=== PATIENT | female | born 1955 | race Caucasian/White ===

== ENCOUNTER 2020-01-30 19:55 | Emergency (ER) | payer MEDICARE, SELFPAY ==
--- NOTE | ~2020-01-30 | XR_ITS ---
EXAMINATION: XR chest 1V portable EXAM DATE: 01/30/2020 21:18 INDICATION: Left-sided chest pain. TECHNIQUE: Portable AP frontal chest x-ray was obtained. Comparison is made to prior examination from 09/19/2019. FINDINGS: Chondral cartilage calcification unchanged. The lungs are clear. There are no pleural effu sions. The cardiomediastinal silhouette is within normal limits. There is no pneumothorax suspected . The bones and soft tissues are unremarkable. IMPRESSION: No acute cardiopulmonary findings. Reviewed, dictated and finalized at location A.
--- NOTE | ~2020-01-30 | CT_ITS ---
EXAMINATION: CT abdomen pelvis w con EXAM DATE: 01/30/2020 21:52 INDICATION: Left-sided abdominal pain. TECHNIQUE: Spiral CT of the abdomen and pelvis was performed following intravenous injection of 100 m L Omnipaque 350. Axial, coronal and sagittal images were reviewed. The dose-length product (DLP) fo r this examination was 1695.21 mGy-cm. The exposure was tailored according to patient size (auto mA exposure control), and iterative reconstruction (ASIR) was used as additional dose reduction techniqu e. There is no prior study for comparison. FINDINGS: There is a right lower quadrant spigelian hernia with the terminal ileum extending inside. Hernia measures about 8 x 10 cm and is likely causing partial small bowel obstruction given the moder ately distended small bowel proximal to this up to about 3 cm, with air-fluid levels. Mild edema with in the hernia and small amount of free pelvic fluid. Uncertain whether or not this is incarcerated. A lso small umbilical and supraumbilical fat-containing hernias. The liver, spleen, adrenal glands and pancreas are unremarkable. There are gallstones within an othe rwise unremarkable gallbladder. No evidence of obstructive biliary disease. Portal and splenic vein s are patent. Kidneys enhance symmetrically. There is no hydronephrosis. The uterus is unremarkab le. The bladder is unremarkable. There is no retroperitoneal or pelvic lymphadenopathy. There is moderate scattered arteriosclerotic disease. There are surgical changes consistent with appendectomy. There is expected amount of colonic stool. No free intraperitoneal gas. There is cardiomegaly. The lung bases are unremarkable. There are no osteoblastic or osteolytic lesions identified. IMPRESSION: 1. Right lower quadrant spigelian hernia containing partially obstructed terminal ileum. 2. Small umbilical, supra umbilical fat-containing hernias. 3. Cholelithiasis. Reviewed, dictated and finalized at location A. IMPRESSION: 1. Right lower quadrant spigelian hernia containing partially obstructed termi nal ileum. 2. Small umbilical, supra umbilical fat-containing hernias. 3. Cholelithiasis.
[2020-01-30 20:07] VITALS: BP 172/76; PULSE 105; RESP 18; TEMP 37.1; O2SAT 95
--- NOTE | 2020-01-30 20:39 | ECG_ITS ---
Measurements Intervals [place] Rate: 101 P: 60 W[place]: 124 QRS: 45 QRSD: 96 T: 2 QT: 354 QTc: 459 Interpretive Statements SINUS TACHYCARDIA CONSIDER INFERIOR INFARCT, AGE INDETERMINATE BASELINE ARTIFACT- II, III ABNORMAL ECG Electronically Signed On 01-31-2020 7:15:36 CDT by Vinicius Lamb D.O.
--- NOTE | 2020-01-30 20:42 | ED.ABDPAIN ---
HPI - Abdominal Pain General Chief Complaint: Nausea/Vomiting/Diarrhea Stated Complaint: AMB Source: patient Mode of arrival: EMS Limitations: no limitations History of Present Illness HPI narrative: 64 y.o. female with IDDM, hypertension, obesity recurrent UTIs c/o intermittent left sided abdominal pain x years, usually just in the AM. For the past 4-5 days the pain has been worse (8-9/10), sharp and lasts throughout the day. This has been associated with nausea and vomiting 4 -5 x/day, which makes the pain worse. This has been associated with left lower chest pain, heartburn and burping. She has been constipated. Denies coffee ground emesis or melena. Her appetite has been decreased. Her son has been checking her blood sugar 3x/day and giving insulin. She believes the blood sugars have been good . She is incontinent of urine but denies dysuria. Radiation: none Associated symptoms: fever Related Data Home Medications Medication Instructions Recorded Confirmed Lantus Solostar U-100 Insulin 48 unit SUBCUT HS 09/18/19 01/30/20 Trulicity 3 mg SUBCUT WEEKLY 09/18/19 01/30/20 atorvastatin 40 mg PO HS 09/18/19 01/30/20 bupropion HCl 200 mg PO BID 09/18/19 01/30/20 fluoxetine 60 mg PO DAILY 09/18/19 01/30/20 insulin lispro [Humalog KwikPen 10 unit SUBCUT TID 09/18/19 01/30/20 Insulin] metoprolol tartrate 100 mg PO BID 09/18/19 01/30/20 Allergies Allergy/AdvReac Type Severity Reaction Status Date / Time No Known Allergies Allergy Verified 09/18/19 14:24 Review of Systems Constitutional: Constitutional: Denies chills and Denies fever(s) ENT: Denies dysphagia Cardiovascular: Cardiovascular: Reports chest pain (left sided chest pain associated with left sided abdominal pain. ) Respiratory: Respiratory: Denies cough and Denies dyspnea Gastrointestinal: Gastrointestinal: Reports no additional gastrointestinal complaints Genitourinary: Genitourinary: Reports no additional female genitourinary complaints Musculoskeletal: Comments: chronic left knee pain Integumentary/Breasts: Comments: chronic rash right ankle. Neurologic: Denies vertigo and Denies dizziness Psychiatric: Psychiatric: Denies anxiety and Denies depression Endocrine: Endocrine: Reports fatigue Hematologic/Lymphatic: Hematologic/Lymphatic: Denies easy bleeding and Denies easy bruising Allergic/Immunologic: Allergic/Immunologic: Denies no additional allergic/immunologic complaints [facility] Past Medical History Medical History (Updated 01/30/20 @ 23:38 by Ben Golden MD) Exogenous obesity Hypertension Insulin dependent diabetes mellitus Surgical History Surgical History H/O breast biopsy S/P unilateral salpingo-oophorectomy Family History Family History (Updated 09/18/19 @ 17:39 by Gerson Traore MD) Mother No problems noted. Father No problems noted. Social History Social History (Updated 01/30/20 @ 21:03 by Ben Golden MD) Social History: Pt requires the help of his son to bathe and dress. Smoking status: Former smoker Alcohol intake: never Exam Const: General: no acute distress and alert Nutritional Appearance: obese HENMT: Ears: external ears abnormal (bilateral cerumenosis) Mouth: Yes Normal oral and palatal mucosa present and Yes moist mucous membranes Eyes: Conjunctivae: conjunctivae normal Neck: Neck: no lymphadenopathy Chest: Chest palpation & inspection: normal inspection of the chest Resp: Auscultation: clear to auscultation bilaterally, no rales and no wheezes Cardio: Rate: regular rate Rhythm: regular rhythm GI: Inspection: abnormal to inspection (morbidly obese), no incisions and no scars GI Palp: Yes abdominal tenderness (maximal point of tenderness just below and L of midline. ), Yes Tenderness to palpation present (GI) and Yes Guarding due to palpation present (GI) Percussion: Yes normal to percussion Auscu
[2020-01-30 20:52] LABS: Basophils Absolute Auto 0.03 K/mm3 (0.00-0.10); Basophils Percent Auto 0.2 % (0.0-1.0); Eosinophils Absolute Auto 0.03 K/mm3 (0.02-0.50); Eosinophils Percent Auto 0.2 % (1.0-6.0); Hematocrit 44.2 % (35.0-42.0); Hemoglobin 14.6 g/dL (11.7-13.8); Immature Granulocyte Absolute 0.03 K/mm3 (0.00-0.00); Immature Granulocyte Percent A 0.2 % (0.0-0.0); Lymphocytes Absolute Auto 0.78 K/mm3 (1.10-4.50); Lymphocytes Percent Auto 6.2 % (18.0-42.0); Mean Corpuscular Hemoglobin 29.2 pg (27.0-31.0); Mean Corpuscular Volume 88.4 fL (78.0-102.0); Mean Platelet Volume 9.1 fl (9.2-11.8); Monocytes Absolute Auto 1.23 K/mm3 (0.10-0.90); Monocytes Percent Auto 9.8 % (2.0-11.0); Neutrophils Absolute Auto 10.5 K/mm3 (1.7-7.2); Neutrophils Percent Auto 83.4 % (50.0-70.0); Platelet Count Result 302 K/mm3 (150-420); Red Cell Distribution Width 12.7 % (11.6-14.4); White Blood Count 12.6 K/mm3 (4.8-10.8)
--- NOTE | 2020-01-30 21:05 | PC.NURSE ---
3 ATTEMPTS AT URINARY STRAIGHT CATHERIZATION
[2020-01-30 21:11] LABS: Alanine Aminotransferase 25 U/L (14-59); Albumin Level 2.1 g/dL (3.4-5.0); Alkaline Phosphatase 114 U/L (46-116); Anion Gap 12.8 mmol/L (7-16); Aspartate Amino Transferase 22 U/L (15-37); Blood Urea Nitrogen 24 mg/dL (7-18); CRP 7.4 mg/dL (0.0-0.9); Calcium 8.2 mg/dL (8.5-10.1); Carbon Dioxide 30 mmol/L (21-32); Chloride 98 mmol/L (98-108); Estimated CRCL calculation 54 ml/min; Estimated Glomerular Filt Rate 48; Glucose 381 mg/dL (70-99); Lipase 94 U/L (73-393); Magnesium 1.2 mg/dL (1.8-2.4); Osmolality Calculated 302 mOsm/kg (285-295); Potassium 4.8 mmol/L (3.5-5.1); Sodium 136 mmol/L (136-145); Total Protein 5.9 g/dL (6.4-8.2)
[2020-01-30 21:12] LABS: Troponin I < 0.02 ng/mL (0.00-0.056)
[2020-01-30] MEDS: SODIUM CHLORIDE 0.9% IV 1,000 ML 500 ML IV CONT (21:49)
[2020-01-30] MEDS: MAGNESIUM SULF 2 GM/WATER 50ML 2 GM/50 ML BAG IVPB (22:17)
[2020-01-30] MEDS: INSULIN HUMAN REGULAR (*BKC) 100 UNITS/ML 8 UNITS IV PUSH (22:23)
--- NOTE | 2020-01-30 22:33 | PC.NURSE ---
[employer], CONTACTED AT [id number] TO REQUEST TRANSFER/SURGERY CONSULT. AWAITING CALL BACK FROM ON-CALL SURGEON DR. SALAMANCA
[2020-01-30 22:37] LABS: Lactic Acid 1.9 mmol/L (0.4-2.0)
--- NOTE | 2020-01-30 22:48 | PC.NURSE ---
DR. SALAMANCA CONTACTED ERP AT THIS TIME
--- NOTE | 2020-01-30 23:06 | PC.NURSE ---
REPORT PROVIDED TO NEAL GRAHAM
[2020-01-30] MEDS: MORPHINE SULFATE 4 MG/ML INJ IV PUSH (23:31)
--- NOTE | 2020-01-30 23:32 | PC.NURSE ---
2319 call to [facility] for transfer to [place]. awaiting arrival
[2020-01-30 23:36] VITALS: BP 196/84; PULSE 108; RESP 18; TEMP 37.1; O2SAT 96
== END 2020-01-30 23:47 | disposition short-term general hospital (02) ==
PROVIDERS: Emergency Provider Family Medicine
DX: K43.6 Other and unspecified ventral hernia with obstruction, without gangrene (principal); E11.65 Type 2 diabetes mellitus with hyperglycemia; Z79.4 Long term (current) use of insulin; E83.42 Hypomagnesemia
CPT/HCPCS: 36415; 71045; 74177; 80053; 83605; 83690; 83735; 84484; 85025; 86140; 93005; 96361; 96365; 96375; 99285; J1815; J2270; J3475; J7030; Q9965

== ENCOUNTER 2020-01-31 01:21 | Observation (INO) | payer MEDICARE, SELFPAY ==
--- NOTE | ~2020-01-31 | XR_ITS ---
EXAMINATION: XR sm bowel follow through WS DATE: 01/31/2020 12:19 INDICATION: Incarcerated spigelian hernia. TECHNIQUE: Oral contrast was administered, and a time course of radiographs of the abdomen was obtain ed. Fluoroscopy of the small bowel was not performed. Fluoroscopy exposure time was 0 minutes. The to taina number of images was 6. COMPARISON: CT abdomen and pelvis 01/30/2020 FINDINGS: There are multiple dilated loops of small bowel. At 1 hour, there was no contrast in the colon, which is normal in caliber. At 2 hours, there is contrast in the colon. IMPRESSION: 1. Dilated small bowel, consistent with partial small bowel obstruction. Reviewed, dictated and finalized at location A.
[2020-01-31 00:15] VITALS: BP 151/72; PULSE 108; RESP 20; TEMP 36.3; O2SAT 92; BMI 48.7
--- NOTE | 2020-01-31 00:50 | ADMGEN ---
This patient, Neida Tobias, was admitted to 3 [facility] Surg Room 323-01. Patient/family oriented to hospital policies and general routines including ID bracelet, bed and alarms, visiting hours, pain management, procedures, bathroom and other care routines, personal items, smoking policy, room service/diet, and visiting hours. Valuables list has been completed. Information on how to activate the Rapid Response Team has been discussed. Patient/Family are encouraged to report perceived risks to care and to ask questions if they do not understand what they are told or what they should do.
[2020-01-31] MEDS: SODIUM CHLORIDE 0.9% IV 1,000 ML 100 ML IV CONT ×2 (01:51→16:46)
[2020-01-31] MEDS: MORPHINE SULFATE 2 MG/ML INJ IV PUSH (01:52)
--- NOTE | 2020-01-31 01:54 | PM.IMHP ---
H&P: HPI History of Present Illness Chief complaint: Spigelian hernia w/ partial bowel obstruction Narrative: This is a 64 year old morbidly obese diabetic female with known HTN, recurrent UTIs who presented to the hospital with a complaints of 5 days of severe diffuse lower abdominal pain. Associated symptoms include nausea and vomiting. She reports vomiting about 4 times a day. Her last bowel movement was yesterday. She denies any fever or chills. She denies any significant abdominal distension. She was evaluated in the [place] ER this evening and found to have a right lower quadrant spigelian hernia containing partially obstructed terminal ileum and a small umbilical, supra umbilical fat-containing hernias. General surgery, Dr. Leon has been consulted by ER provider and has asked that we admit the patient to the hospital. No other complaints. Review of Systems Review of Systems: All systems reviewed & are unremarkable except as noted in HPI and below PMFSH Past Medical History Medical History Exogenous obesity Hypertension Insulin dependent diabetes mellitus Surgical History Surgical History H/O breast biopsy S/P unilateral salpingo-oophorectomy Family History Family History Mother AAA (abdominal aortic aneurysm) Hypertension Father Cancer Social History Social History Social History: Pt requires the help of his son to bathe and dress. Smoking packs per day: 1 Smoking cigarettes per day: 20.0 Years smoked: 10 Smoking pack-years: 10.00 Smoking status: Former smoker Tobacco type: cigarettes Alcohol intake: never Substance use: never Gender identity (if verbalized by the patient): Female Spiritual care concerns: No Meds Home Medications and Allergies Home Medications Medication Instructions Recorded Confirmed Type Lantus Solostar U-100 Insulin 40 unit SUBCUT HS 09/18/19 01/31/20 History Trulicity 3 mg SUBCUT WEEKLY 09/18/19 01/31/20 History atorvastatin 40 mg PO HS 09/18/19 01/31/20 History bupropion HCl 200 mg PO BID 09/18/19 01/31/20 History fluoxetine 20 mg PO TID 09/18/19 01/31/20 History insulin lispro [Humalog KwikPen 10 unit SUBCUT AC 09/18/19 01/31/20 History Insulin] metoprolol tartrate 100 mg PO BID 09/18/19 01/31/20 History lisinopril-hydrochlorothiazide 1 tablet PO BID 01/31/20 01/31/20 History Allergies Allergy/AdvReac Type Severity Reaction Status Date / Time No Known Allergies Allergy Verified 09/18/19 14:24 Vital Signs Vital Signs - 24 hr 01/31/20 00:15 Temperature 36.3 C L Pulse Rate 108 H Respiratory Rate 20 Blood Pressure 151/72 H Pulse Oximetry 92 Exam Const: General: no acute distress, alert, awake and ill appearing chronically Nutritional Appearance: obese morbidly obese Orientation/consciousness: patient oriented x3 HENMT: Head: normal to inspection General nose exam: Normal external nose present Face and sinus: normal facial exam Mouth: Yes Normal oral and palatal mucosa present and Yes oropharynx normal Eyes: Pupils: Equal, round and reactive pupils present EOM: EOMs intact bilaterally Neck: Neck: supple and no JVD Thyroid: thyroid normal Lymphatic: lymphadenopathy not noted Resp: Effort & Inspection: normal respiratory effort Auscultation: clear to auscultation bilaterally Cardio: Rate: regular rate Rhythm: regular rhythm Heart sounds: no murmurs GI: Inspection: Pannus present GI Palp: Yes abdominal tenderness (Lower abd++ ) Auscultation: Hypoactive bowel sounds present Rectal Exam: deferred Skin: General skin exam: normal color and no rashes or lesions noted Neuro: General: patient oriented x3 Cranial nerves: Yes CN's II-XII intact bilaterally and Yes Equal, round and reactive pupils present Speech:
[2020-01-31 02:06] VITALS: BP 144/77; PULSE 99; RESP 20; TEMP 36.2; O2SAT 93
[2020-01-31 05:36] LABS: Glucose Point of Care 291 (65-105)
[2020-01-31] MEDS: INSULIN ASPART (*BKC) 100 UNITS/ML SUB-Q ×4 (05:45→23:52)
[2020-01-31 06:00] VITALS: BP 135/65; PULSE 103; RESP 20; TEMP 36.6; O2SAT 82
[2020-01-31 06:06] LABS: Basophils Percent Auto 0.4 % (0.2-1.2); Eosinophils Absolute Auto 0.1 K/mm3 (0-0.3); Hematocrit 44.6 % (37.0-47.0); Hemoglobin 14.4 g/dL (12.0-15.0); Immature Granulocyte Absolute 0.01 K/mm3 (0.00-0.031); Immature Granulocyte Percent A 0.1 % (0-0.5); Lymphocytes Absolute Auto 0.89 K/mm3 (0.9-3.2); Lymphocytes Percent Auto 12.4 % (18.3-44.2); Mean Corpuscular HGB Conc 32.3 g/dl (32-36); Mean Corpuscular Hemoglobin 28.9 pg (26-34); Mean Corpuscular Volume 89.4 fl (80-100); Mean Platelet Volume 9.9 fl (7.4-10.4); Monocytes Absolute Auto 0.9 K/mm3 (0.1-0.6); Monocytes Percent Auto 13.1 % (2.6-8.5); Neutrophils Absolute Auto 5.3 K/mm3 (1.3-6.7); Platelet Count Result 295 k/mm3 (150-375); Red Blood Count 4.99 M/mm3 (4.2-5.4); Red Cell Distribution Width 13.1 % (11.5-14.5); White Blood Count 7.2 K/mm3 (4.5-10.0)
[2020-01-31 06:20] LABS: Blood Urea Nitrogen 25 mg/dL (7-17); Calcium 7.8 mg/dL (8.4-10.2); Carbon Dioxide 27 mmol/L (22-30); Chloride 100 mmol/L (98-107); Estimated CRCL calculation 94 ml/min; Estimated Glomerular Filt Rate > 60; Glucose 286 mg/dL (65-105); Magnesium 1.7 mg/dL (1.6-2.3); Potassium 3.9 mmol/L (3.4-5.0); Sodium 133 mmol/L (137-145)
--- NOTE | 2020-01-31 09:07 | PM.CNGS ---
Assessment and Plan Assessment and plan (1) Spigelian hernia: Code(s): K43.9 - Ventral hernia without obstruction or gangrene Status: Acute Assessment and Plan: I have reviewed the CT and discussed the findings with the patient. She has evidence of an incarcerated spigelian hernia on the right lower quadrant. This is at least causing a partial small-bowel obstruction. Due to her large body habitus it is difficult to tell whether this hernia is reducible or not. I will order a Gastrografin small-bowel follow-through to be done this morning to assess whether this appears to be causing a significant obstruction that would require urgent surgery. Patient is extremely high risk for surgery. She has poorly controlled insulin-dependent diabetes and a BMI of 49. I will get a hemoglobin A1c today to assess for her overall glucose control. If obstruction is found on the imaging today, she may require emergent incarcerated spigelian hernia repair. Surgery would have risks of hernia recurrence, bowel injury, wound infection, and multiple other perioperative risks. (2) Partial bowel obstruction: Qualifiers: Intestinal obstruction type: other intestinal obstruction Qualified Code(s): K56.690 - Other partial intestinal obstruction Code(s): K56.600 - Partial intestinal obstruction, unspecified as to cause Status: Acute Assessment and Plan: NG tube may need to be placed if patient begins vomiting or if Gastrografin small-bowel follow-through shows evidence of obstruction. (3) Morbid obesity: Code(s): E66.01 - Morbid (severe) obesity due to excess calories Status: Chronic (4) Insulin dependent diabetes mellitus: Code(s): E11.9 - Type 2 diabetes mellitus without complications; Z79.4 - MCFP (current) use of insulin Status: Chronic History of Present Illness Consult details Consult date: 01/31/20 Narrative: This is a 64-year-old woman who presented to [facility] last night with complaints of abdominal pain. She states she has had abdominal pain off and on for the past month, but this has been worse over the past several days. She does feel bloated at times and has had nausea and vomiting. Her bowels have been somewhat irregular as well, but she did have a bowel movement yesterday and she is passing flatus. Her pain is mostly located along the right lower quadrant, but she does get some diffuse abdominal pain. She denies any fevers. She has had a laparoscopic procedure for infertility in the past, but she denies any other abdominal surgeries. A CT was obtained in the emergency department at [facility], and this showed evidence of a spigelian hernia containing partially obstructed small bowel. The patient lives at home and walks with a walker. She is a long-time diabetic and is currently on Lantus insulin. Her BMI is greater than 45. Review of Systems Review of Systems: All systems reviewed & are unremarkable except as noted in HPI and below Eyes: Eyes: Denies change in vision ENT: Denies hearing loss, Denies neck pain and Denies sore throat Cardiovascular: Cardiovascular: Denies chest pain and Denies dyspnea Respiratory: Respiratory: Denies cough, Denies dyspnea and Denies wheezing Gastrointestinal: Gastrointestinal: Reports as per HPI Genitourinary: Genitourinary: Denies hematuria and Denies dysuria Musculoskeletal: Musculoskeletal: Denies arthralgias, Denies joint swelling and Denies neck pain Allergic/Immunologic: Allergic/Immunologic: Denies wheezing [facility] Past Medical History Medical History Exogenous obesity Hypertension Insulin dependent diabetes mellitus Surgical History Surgical History H/O breast biopsy S/P unilateral salpingo-oophorectomy Family History Family History (Reviewed 01/31/20 @ 09:10 by Aaron Mcelroy
[2020-01-31 09:22] LABS: Hemoglobin A1C 8.9 % (<5.7)
[2020-01-31 12:25] LABS: Glucose Point of Care 253 (65-105)
[2020-01-31 14:00] VITALS: BP 162/71; PULSE 92; RESP 16; TEMP 36.6; O2SAT 94
--- NOTE | 2020-01-31 16:34 | PM.IMPN ---
Progress Note: A&P Assessment and Plan (1) Spigelian hernia: Code(s): K43.9 - Ventral hernia without obstruction or gangrene Status: Acute Assessment and Plan: Continue bowel rest Small-bowel follow-through Surgical consultation (2) Partial bowel obstruction: Qualifiers: Intestinal obstruction type: other intestinal obstruction Qualified Code(s): K56.690 - Other partial intestinal obstruction Code(s): K56.600 - Partial intestinal obstruction, unspecified as to cause Status: Acute Assessment and Plan: Likely due to spigelian hernia with incarceration Continue bowel rest Small-bowel follow-through (3) Abnormal urinalysis: Code(s): R82.90 - Unspecified abnormal findings in urine Status: Acute Assessment and Plan: Ceftriaxone pending culture results (4) Hypomagnesemia: Code(s): E83.42 - Hypomagnesemia Status: Acute Assessment and Plan: Magnesium supplemented and [place] prior to transfer Follow-up labs (5) Leukocytosis: Qualifiers: Leukocytosis type: unspecified Qualified Code(s): D72.829 - Elevated white blood cell count, unspecified Code(s): D72.829 - Elevated white blood cell count, unspecified Status: Acute Assessment and Plan: Due to UTI versus demargination from pain (6) Insulin dependent diabetes mellitus: Code(s): E11.9 - Type 2 diabetes mellitus without complications; Z79.4 - 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 (7) Hypertension: Qualifiers: Hypertension type: unspecified Qualified Code(s): I10 - Essential (primary) hypertension Code(s): I10 - Essential (primary) hypertension Status: Chronic Assessment and Plan: Continue to monitor Resume home regimen when feasible (8) Morbid obesity: Code(s): E66.01 - Morbid (severe) obesity due to excess calories Status: Chronic Assessment and Plan: Healthy lifestyle choices were encouraged. Subjective Date/time seen: 01/31/20 16:34 Interval history: Admitted 01/29 for abdominal pain and incarcerated right spigelian hernia. 01/30. Bowels moving. Some bloating and right flank to lower quadrant discomfort. [id number]. No nausea or vomiting. Asking about food. Review of Systems Review of Systems: All systems reviewed & are unremarkable except as noted in HPI and below Exam Narrative: Exam Narrative: Morbidly obese elderly female in no acute distress HEENT: EOMI, PERRL, sclerae nonicteric, pharyngeal mucosa pink and intact NECK: No JVD, adenopathy, or thyromegaly CHEST: Clear to auscultation. Normal effort. HEART: NL S1/S2, regular, no murmur ABDOMEN: BS+, soft, tender non reducible mass with bowel sounds present with and in the right lower quadrant to flank region EXTREMITIES: No cyanosis, edema, or clubbing NEUROLOGIC: CN intact and symmetric to inspection. MUSCULOSKELETAL: Tone and strength symmetric. PSYCH: Alert. Oriented to person, place, and time. Objective Data Vital Signs Vital Signs: Vital Signs - 24 hr 01/31/20 00:15 01/31/20 02:06 01/31/20 06:00 Temperature 97.4 F L 97.2 F L 97.9 F Pulse Rate 108 H 99 103 H Respiratory Rate 20 20 20 Blood Pressure 151/72 H 144/77 H 135/65 Pulse Oximetry 92 93 82 L 01/31/20 14:00 Temperature 97.8 F Pulse Rate 92 Respiratory Rate 16 Blood Pressure 162/71 H Pulse Oximetry 94 Intake/Output Intake/Output: Intake & Output 01/28/20 01/29/20 01/30/20 01/31/20 23:59 23:59 23:59 23:59 Intake Total 50 Balance 50 Meds/Results Medications: Active Medications Generic Name Dose Route Start Last Admin Trade Name Freq PRN Reason Stop Dose Admin Dextrose 12.5 gm 01/31/20 01:23 Dextrose 50% Syringe IV PUSH PRN PRN Hypoglycemia Protocol Glucagon 1 mg 01/31/20 01:23 Glu
[2020-01-31 18:09] LABS: Glucose Point of Care 251 (65-105)
[2020-01-31 21:43] VITALS: BP 174/71; PULSE 92; RESP 20; TEMP 36.5; O2SAT 95
[2020-02-01] MEDS: SODIUM CHLORIDE 0.9% IV 1,000 ML 100 ML IV CONT (02:27)
[2020-02-01 04:08] LABS: Glucose Point of Care 271 (65-105)
[2020-02-01 05:52] LABS: Glucose Point of Care 189 (65-105)
[2020-02-01 06:00] VITALS: BP 173/68; PULSE 80; RESP 20; TEMP 36.3; O2SAT 94
--- NOTE | 2020-02-01 08:58 | ECG_ITS ---
Measurements Intervals [place] Rate: 77 P: 50 [place]: 157 QRS: 18 QRSD: 98 T: 95 QT: 400 QTc: 455 Interpretive Statements SINUS RHYTHM VOLTAGE CRITERIA FOR LVH CONSIDER INFERIOR INFARCT, AGE INDETERMINATE BORDERLINE ST-T WAVE ABNORMALITY- LATERAL LEADS BASELINE ARTIFACT- I, II ABNORMAL ECG Electronically Signed On 02-01-2020 10:55:28 CDT by Vinicius Lamb D.O.
--- NOTE | 2020-02-01 08:59 | PM.PNGS ---
Progress Note: A&P Assessment and Plan (1) Spigelian hernia: Code(s): K43.9 - Ventral hernia without obstruction or gangrene Status: Acute Assessment and Plan: Not obstructed from hernia. She will be high risk for complications with an open repair. I think it will be safe to send patient home and come back for an elective robotic/laparoscopic repair. Had long discussion with patient about her risks and potential complications with surgery. Will advance diet as tolerated. OK to discharge home today if tolerating diet. Will plan surgery for 02/05. She is higher risk, but she is also high risk for bowel obstruction and strangulation with this hernia. 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 No abdominal pain. Tolerating clears. Exam GI: Inspection: Pannus present and obesity GI Palp: Yes Soft to palpation and No Tenderness to palpation present (GI) Percussion: Yes normal to percussion Auscultation: normal bowel sounds Objective Data Vital Signs Vital Signs: Vital Signs - 24 hr 01/31/20 14:00 01/31/20 21:43 02/01/20 06:00 Temperature 36.6 C 36.5 C 36.3 C L Pulse Rate 92 92 80 Respiratory Rate 16 20 20 Blood Pressure 162/71 H 174/71 H 173/68 H Pulse Oximetry 94 95 94 Intake/Output Intake/Output: Intake & Output 01/29/20 01/30/20 01/31/20 05/14/20 23:59 23:59 23:59 23:59 Intake Total 1460 1840 Balance 1460 1840 Meds/Results Medications: Active Medications Generic Name Dose Route Start Last Admin Trade Name Freq PRN Reason Stop Dose Admin Dextrose 12.5 gm 01/31/20 01:23 Dextrose 50% Syringe IV PUSH PRN PRN Hypoglycemia Protocol Glucagon 1 mg 01/31/20 01:23 Glucagon For Inj IM PRN PRN Hypoglycemia Protocol Dextrose 1,000 mls @ 100 mls/hr 01/31/20 01:23 Dextrose 5% 1,000 Ml IVPB PRN PRN Hypoglycemia Protocol Ceftriaxone Sodium/Dextrose 1 gm in 50 mls @ 100 mls/hr 01/31/20 02:15 01/31/20 22:02 Rocephin 1 Gm/D5w 50 Ml IVPB Infused DAILY@2200 SABA Infusion Insulin Aspart 2 - 5 units 01/31/20 06:00 02/01/20 05:50 Novolog SUB-Q Not Given Q6HR [facility] Protocol Prochlorperazine Edisylate 10 mg 01/31/20 11:01 Compazine IV PUSH Q6H PRN Nausea And Vomiting Radiology Results: ITS Impressions Small Bowel X-Ray 01/31/20 12:21 IMPRESSION: 1. Dilated small bowel, consistent with partial small bowel obstruction. Labs Labs: Laboratory Results - last 24 hr 01/31/20 01/31/20 01/31/20 05:23 12:23 18:02 POC Capillary Glucose 253 H 251 H Hemoglobin A1c 8.9 H 01/31/20 02/01/20 23:49 05:49 POC Capillary Glucose 271 H 189 H Hemoglobin A1c Quality VTE Prophylaxis VTE prophylaxis: mechanical ordered
--- NOTE | 2020-02-01 10:47 | P.DS_ITS ---
DS: Summary Hospital Course Reason for hospitalization: abdominal pain Hospital Course: Admitted with right abdominal pain. Found to have spighelian hernia. Surgical eval completed. Symptoms reolved with reduction. [place] to be safe for elective repair next week. Status at Discharge Overall status at discharge: patient is back to baseline Time Spent with Patient Time attestation: Total time spent providing and/or coordinating discharge services: Time spent: Greater than 30 minutes Exam Narrative: Exam Narrative: Morbidly obese elderly female in no acute distress HEENT: EOMI, PERRL, sclerae nonicteric, pharyngeal mucosa pink and intact NECK: No JVD, adenopathy, or thyromegaly CHEST: Clear to auscultation. Normal effort. HEART: NL S1/S2, regular, no murmur ABDOMEN: BS+, soft, mildly tender non reducible mass with bowel sounds present with and in the right lower quadrant to flank region EXTREMITIES: No cyanosis, edema, or clubbing NEUROLOGIC: CN intact and symmetric to inspection. MUSCULOSKELETAL: Tone and strength symmetric. PSYCH: Alert. Oriented to person, place, and time. DS: Data Data Completed and Pending Labs on day of discharge: Labs from last 24 hours 02/01/20 01/31/20 01/31/20 05:49 23:49 18:02 POC Capillary Glucose 189 H 271 H 251 H 01/31/20 12:23 POC Capillary Glucose 253 H Discharge Plan Discharge Consulting providers: Aaron Leon ; Vinicius Lamb ; Eze Calvert V. Discharging Clinician: Ananda Bonilla Patient Disposition: Home, Self-Care Activity: no straining Diet: diabetic and low sodium Patient Instructions: Antibiotic Form, Bowel Obstruction (DC), Ventral Hernia (DC) Stand Alone Forms: General Discharge Information Follow-up/Referrals: Aaron Leon, [Primary Care Provider] - Call for Appointment Discharge Medications: New cefdinir 300 mg capsule 300 mg PO Q12H Qty: 6 RF: 0 Continued atorvastatin 40 mg tablet 40 mg PO HS RF: 0 metoprolol tartrate 100 mg tablet 100 mg PO BID RF: 0 fluoxetine 20 mg capsule 20 mg PO TID RF: 0 bupropion HCl 200 mg tablet sustained-release 12 hr 200 mg PO BID RF: 0 insulin lispro [Humalog KwikPen Insulin] 100 unit/mL insulin pen 10 unit SUBCUT AC RF: 0 Lantus Solostar U-100 Insulin 100 unit/mL (3 mL) insulin pen 40 unit SUBCUT HS RF: 0 Trulicity 0.75 mg/0.5 mL pen injector 3 mg SUBCUT WEEKLY RF: 0 lisinopril-hydrochlorothiazide 20-12.5 mg tablet 1 tablet PO BID RF: 0 Date of admission: 01/31/20 01:21 Primary Care Provider: Aaron Leon Admitting Provider: Ben Tejada Discharge Date/Time: 02/01/20 17:25 Attending physician on admission: Ananda Bonilla Condition: Improved Quality VTE Prophylaxis VTE prophylaxis: mechanical ordered
[2020-02-01 11:07] LABS: Hematocrit 40.3 % (37.0-47.0); Hemoglobin 12.9 g/dL (12.0-15.0); Mean Corpuscular Volume 90.6 fl (80-100); Mean Platelet Volume 9.2 fl (7.4-10.4); Platelet Count Result 269 k/mm3 (150-375); Red Blood Count 4.45 M/mm3 (4.2-5.4); Red Cell Distribution Width 13.1 % (11.5-14.5); White Blood Count 6.4 K/mm3 (4.5-10.0)
[2020-02-01 11:17] LABS: Blood Urea Nitrogen 22 mg/dL (7-17); Calcium 7.9 mg/dL (8.4-10.2); Carbon Dioxide 27 mmol/L (22-30); Chloride 101 mmol/L (98-107); Estimated CRCL calculation 83 ml/min; Estimated Glomerular Filt Rate > 60; Glucose 261 mg/dL (65-105); Potassium 3.3 mmol/L (3.4-5.0); Sodium 133 mmol/L (137-145)
[2020-02-01 12:08] LABS: Glucose Point of Care 233 (65-105)
[2020-02-01] MEDS: INSULIN ASPART (*BKC) 100 UNITS/ML SUB-Q (12:08)
--- NOTE | 2020-02-01 13:14 | PCPTNOTE ---
Patient refused PT eval treatment this session due to having to deal with her son and personal issues. Will attempt PT later this pm.
[2020-02-01 14:54] VITALS: BP 164/66; PULSE 82; RESP 16; TEMP 36.8; O2SAT 97
== END 2020-02-01 17:25 | disposition home or self-care (01) ==
PROVIDERS: Admitting Provider Family Medicine; PCP Surgery; Visit Provider Internal Medicine
DX: K43.9 Ventral hernia without obstruction or gangrene (principal); K56.690 Other partial intestinal obstruction; E66.01 Morbid (severe) obesity due to excess calories; Z68.42 Body mass index [BMI] 45.0-49.9, adult; N30.00 Acute cystitis without hematuria; I10 Essential (primary) hypertension; E11.9 Type 2 diabetes mellitus without complications; E83.42 Hypomagnesemia; D72.829 Elevated white blood cell count, unspecified; Z79.4 Long term (current) use of insulin; Z79.899 Other long term (current) drug therapy; Z87.891 Personal history of nicotine dependence
CPT/HCPCS: 36415; 74250; 80048; 83036; 83735; 85025; 85027; 93005; 96361; 96365; 96375; 97162; 97165; G0378; G0379; J0131; J0696; J1815; J2270; J7030

== ENCOUNTER 2020-09-27 15:22 | Inpatient (IN) | payer MEDICARE, SELFPAY ==
[2020-09-27] VITALS (7 sets, daily range): BP systolic 130–188; BP diastolic 76–103; PULSE 100–120; RESP 18–20; TEMP 36–36.4; O2SAT 94–97
--- NOTE | ~2020-09-27 | XR_ITS ---
EXAMINATION: XR chest 1V portable DATE: 09/27/2020 16:02 INDICATION: Altered level of consciousness. TECHNIQUE: A single frontal view of the chest was obtained. COMPARISON: Chest single view 01/30/2020, CT abdomen and pelvis 01/30/2020 FINDINGS: The chest demonstrates clear lungs without pneumonia, pleural effusion, or pneumothorax. Th e heart size is normal. IMPRESSION: 1. No acute cardiopulmonary disease. Reviewed, dictated and finalized at location A. BOTOMIST ASSOCIATE
--- NOTE | ~2020-09-27 | CT_ITS ---
EXAMINATION: CT brain wo con DATE: 09/27/2020 16:02 INDICATION: Altered level of consciousness. Confusion. TECHNIQUE: Computed tomography (CT) of the head was performed without intravenous contrast. The mA wa s adjusted according to patient size. Iterative reconstruction technique was employed. The dose-lengt h product was 605.33 mGy-cm. COMPARISON: None FINDINGS: Motion artifact is noted. There are scattered areas of low attenuation in the cerebral whit e matter. There is an old lacunar infarct in the cameron on the right. There is no intracranial hemorrha ge or abnormal intracranial mass lesion. There is an infarct in the cerebellum on the right. The vent ricles are normal in size. The orbits are normal. The paranasal sinuses are clear. The mastoid air ce lls are normal. IMPRESSION: 1. Age-indeterminate infarct in cerebellum on the right. 2. Old lacunar infarct in the cameron. 3. Moderate nonspecific cerebral white matter disease, which likely represents chronic small vessel i schemic disease. Reviewed, dictated and finalized at location A. E CUTTER IMPRESSION: 1. Age-indeterminate infarct in cerebellum on the right. 2. Old lacunar infarct in the cameron. 3. Moderate nonspecific cerebral white matter disease, which likely represents chronic small vessel ischemic disease.
--- NOTE | ~2020-09-27 | MR_ITS ---
EXAMINATION: MR brain IAC wo con DATE: 10/05/2020 11:12 INDICATION: Altered mental status TECHNIQUE: Magnetic resonance imaging (MRI) of the brain and brainstem was performed without intraven ous contrast. Sequences included sagittal and axial T1-weighted SE, axial diffusion-weighted FS SE, a xial T2*-weighted GRE, axial T2-weighted FLAIR, and axial T2-weighted FSE. Apparent diffusion coeffi cient (ADC) maps were created. COMPARISON: CT head dated 09/27/2020 FINDINGS: Moderate amount of motion artifact on the T2*weighted and T1-weighted axial images and mild motion ar tifact on the axial FLAIR and sagittal T1-weighted images. Old lacunar infarcts in the right cameron and left cerebellar hemisphere. There are no areas of restricted diffusion to suggest acute infarction. No intracranial hemorrhage or abnormal intracranial mass lesion. There are scattered areas of nonspec ific increased T2-weighted signal intensity in the cerebral white matter, predominantly involving the deep and periventricular white matter. There are no intraparenchymal signal abnormalities seen on th e other pulse sequences. The ventricles are symmetric and normal in size. There are no abnormal extra -axial fluid collections. Flow voids are seen in the cerebral arteries on the T2-weighted sequences c onsistent with their expected patency. Mild mucosal thickening in the bilateral ethmoid sinuses. Visu alized orbits and soft tissues are unremarkable. IMPRESSION: 1. No acute intracranial process. 2. Old lacunar infarcts at the right cameron and left cerebellar hemisphere. 3. Scattered periventricular predominant white matter T2 hyperintensity consistent with chronic small vessel ischemic disease. Reviewed, dictated and finalized at location A. ON BAG SEWER IMPRESSION: 1. No acute intracranial process. 2. Old lacunar infarcts at the right cameron and left cerebellar hemisphere. 3. Scattered periventricular predominant white matter T2 hyperintensity consist ent with chronic small vessel ischemic disease.
--- NOTE | 2020-09-27 15:30 | PC.NURSE ---
Pt cleaned of stool and urine. pt unclean and poorly cared for.
[2020-09-27] MEDS: SODIUM CHLORIDE 0.9% IV 1,000 ML 999 ML IV CONT (15:35)
--- NOTE | 2020-09-27 16:17 | ED.AMS ---
HPI - Altered Mental Status General Chief Complaint: Altered Mental Status Stated Complaint: ambulance Source: patient (pt confused) and EMS Mode of arrival: EMS Limitations: clinical condition History of Present Illness HPI narrative: pt presents from home. Apparently pt sitting on a mat with loats of feces and urine that were dried up. Pt arrives here and is more confused than normal. She is unkempt, stool under nails, and skin un clean and soiled, clearly has not bathed in quite some time. Stool and urine down legs and soaked into her socks. Nails unclipped and very dirty. Pt apparently is alert and oriented, and she is not currently. She has repetative questions, and unable to relate her history. She has heavy odor of urine. vss complaint: altered mental status and confusion Consistency of symptoms: constant Related Data Home Medications Medication Instructions Recorded Confirmed Lantus Solostar U-100 Insulin 40 unit SUBCUT HS 09/18/19 09/27/20 Trulicity 3 mg SUBCUT WEEKLY 09/18/19 09/27/20 atorvastatin 40 mg PO HS 09/18/19 09/27/20 fluoxetine 20 mg PO BID 09/18/19 09/27/20 insulin lispro [Humalog KwikPen 10 unit SUBCUT AC 09/18/19 09/27/20 Insulin] lisinopril-hydrochlorothiazide 1 tablet PO DAILY 01/31/20 09/27/20 amlodipine 5 mg PO DAILY 09/27/20 09/27/20 bupropion HCl 150 mg PO BID 09/27/20 09/27/20 metoprolol tartrate 50 mg PO Q12H 09/27/20 09/27/20 Allergies Allergy/AdvReac Type Severity Reaction Status Date / Time No Known Allergies Allergy Verified 09/18/19 14:24 Review of Systems Review of Systems: ROS unobtainable: Yes unobtainable due to mental status PMFSH Past Medical History Medical History (Updated 09/27/20 @ 19:48 by Precious Brennan MD) Exogenous obesity Hypertension Insulin dependent diabetes mellitus Surgical History Surgical History H/O breast biopsy S/P unilateral salpingo-oophorectomy Family History Family History Mother AAA (abdominal aortic aneurysm) Hypertension Father Cancer Social History Social History Social History: Pt requires the help of his son to bathe and dress. Smoking packs per day: 1 Smoking cigarettes per day: 20.0 Years smoked: 10 Smoking pack-years: 10.00 Smoking status: Former smoker Tobacco type: cigarettes Alcohol intake: never Substance use: never Gender identity (if verbalized by the patient): Female Spiritual care concerns: No Exam Const: General: no acute distress, alert and confusion Nutritional Appearance: obese Orientation/consciousness: No patient oriented x3 Limitations: altered mental status Eyes: Pupils: Equal, round and reactive pupils present Chest: Chest palpation & inspection: normal inspection of the chest Resp: Effort & Inspection: normal respiratory effort Auscultation: clear to auscultation bilaterally Cardio: Rate: tachycardic GI: GI Palp: Yes Soft to palpation, No Tenderness to palpation present (GI), No Guarding due to palpation present (GI), No Rigid due to palpation, No Hernia present and No Palpable mass present Auscultation: normal bowel sounds Skin: General skin exam: normal color Rashes: no rashes Neuro: Other: alert but confused Extrem: General: normal to inspection Psych: Appearance: disheveled Affect: Anxious affect present (very anxious, and keeps wanting to get out of here and frequently yells ) Course Vital Signs Vital signs: Vital Signs Temperature 36.2 C L 09/27/20 15:32 Pulse Rate 120 H 09/27/20 15:32 Respiratory Rate 18 09/27/20 15:32 Blood Pressure 157/103 H 09/27/20 15:32 Pulse Oximetry 96 09/27/20 15:32 Temperature 36.4 C L 09/27/20 18:40 Pulse Rate 118 H 09/27/20 18:40 Respiratory Rate 20 09/27/20 18:40 Blood Pressure 167/92 H 09/27/20 18:
[2020-09-27 16:33] LABS: Add Urine Microscopic? YES; Appearance Urine Sl Cloudy (Clear); Basophils Absolute Auto 0.09 K/mm3 (0.00-0.10); Basophils Percent Auto 0.8 % (0.0-1.0); Bilirubin Urine 1+ (Negative); Blood Urine 3+ (Negative); Color Urine Yellow (Yellow); Eosinophils Absolute Auto 0.25 K/mm3 (0.02-0.50); Eosinophils Percent Auto 2.3 % (1.0-6.0); Glucose Urine UA 2+ (Negative); Hematocrit 46.9 % (35.0-42.0); Hemoglobin 15.4 g/dL (11.7-13.8); Immature Granulocyte Absolute 0.04 K/mm3 (0.00-0.00); Immature Granulocyte Percent A 0.4 % (0.0-0.0); Ketones Urine Negative (Negative); Leukocyte Esterase Ur Negative LEU/UL (Negative); Lymphocytes Absolute Auto 2.16 K/mm3 (1.10-4.50); Lymphocytes Percent Auto 19.5 % (18.0-42.0); Mean Corpuscular HGB Conc 32.8 g/dL (32.0-36.0); Mean Corpuscular Hemoglobin 28.2 pg (27.0-31.0); Mean Corpuscular Volume 85.7 fL (78.0-102.0); Mean Platelet Volume 9.1 fl (9.2-11.8); Monocytes Absolute Auto 0.53 K/mm3 (0.10-0.90); Monocytes Percent Auto 4.8 % (2.0-11.0); Neutrophils Percent Auto 72.2 % (50.0-70.0); Nitrate Urine Negative (Negative); Platelet Count Result 338 K/mm3 (150-420); Protein Urine 3+ (Negative); Red Blood Count 5.47 M/mm3 (4.20-5.40); Red Cell Distribution Width 13.2 % (11.6-14.4); Specific Grav Ur 1.025 (1.010-1.020); Urobilinogen Urine 0.2 mg/dL (0.2-1.0); White Blood Count 11.1 K/mm3 (4.8-10.8); pH Urine 6.5 (5.0-8.0)
[2020-09-27 16:41] LABS: Bacteria Urine 3+ /hpf; RBC Urine >75 /hpf (0-2); Squamous Epithelial Cell Urine Moderate /hpf (Few)
[2020-09-27 16:42] LABS: Mucus Urine Moderate /lpf
[2020-09-27 16:47] LABS: Partial Thromboplastin Time 28.2 SEC (23.90-30.70); Prothrombin Time 10.9 Seconds (9.50-12.10)
[2020-09-27] MEDS: LORazepam INJ (*CRX) 2 MG/ML VIAL 0.5 MG IV PUSH (16:50)
[2020-09-27 16:51] LABS: Alanine Aminotransferase 16 U/L (14-59); Albumin Level 1.9 g/dL (3.4-5.0); Alkaline Phosphatase 119 U/L (46-116); Anion Gap 8 mmol/L (8-16); Aspartate Amino Transferase 17 U/L (15-37); Bilirubin,Total 0.4 mg/dL (0.00-1.00); Blood Urea Nitrogen 18 mg/dL (7-18); Calcium 8.6 mg/dL (8.5-10.1); Carbon Dioxide 30 mmol/L (21-32); Chloride 98 mmol/L (98-108); Estimated Glomerular Filt Rate 56; Glucose 276 mg/dL (70-99); Lactic Acid Reflex 3.3 mmol/L (0.4-2.0); Osmolality Calculated 293 mOsm/kg (285-295); Potassium 3.8 mmol/L (3.5-5.1); Sodium 136 mmol/L (136-145); Total Protein 6.3 g/dL (6.4-8.2); Troponin I 17.6 ng/L (0.00-60.4)
--- NOTE | 2020-09-27 16:56 | PC.NURSE ---
Pt yelling let me out of here. pt re-oriented multiple times. pt continues to be confused and only able to tell me her first name. pt thrashing around on bed. pt uncooperative while attempting to obtain blood pressure. unable to maintain cardiac monitoring at this time due to pts uncoopertive state.
--- NOTE | 2020-09-27 18:09 | PC.NURSE ---
TELEPHONE REPORT PROVIDED TO ESPERANZA OLIVARES RN.
[2020-09-27 19:28] LABS: Reflex Lactic Acid Yes or No Add Lactic
--- NOTE | 2020-09-27 19:41 | PC.NURSE ---
RN CONTACTED [facility] FOR NEGLECT AND POSSIBLE FINANCIAL EXPLOITATION AT 1920. REPORT MADE WITH COLEMAN. COLEMAN TOOK ALL INFORMATION RN HAD TO OFFER. COLEMAN STATES THE AGENCY THAT WILL BE HANDLING THIS CASE WILL BE [facility] & [facility]. NEAL THEN CONTACTED ESPERANZA OLIVARES RN, AND GAVE ALL INFORMATION REGARDING THIS CASE.
--- NOTE | 2020-09-27 20:00 | ADMGEN ---
This patient, Neida Tobias, was admitted to 2nd Floor Room 206-1. Patient unable to answer questions due to being unable to comprehend.
[2020-09-27] MEDS: METOPROLOL TARTRATE 50 MG TAB PO (20:04)
[2020-09-27] MEDS: SODIUM CHLORIDE 0.9% IV 1,000 ML 100 ML IV CONT (20:04)
[2020-09-27] MEDS: ATORVASTATIN 40 MG TABLET PO (20:04)
[2020-09-27] MEDS: INSULIN GLARGINE (*BKC) 100 UNITS/ML 40 UNITS SUB-Q (20:31)
[2020-09-27 20:35] LABS: Glucose Point of Care 251 (65-105)
[2020-09-27 20:42] LABS: Lactic Acid 1.7 mmol/L (0.4-2.0)
[2020-09-27] MEDS: LORazepam INJ (*CRX) 2 MG/ML VIAL 1 MG IV PUSH (21:41)
--- NOTE | 2020-09-27 21:45 | PC.NURSE ---
Patient restless, yelling out, grabbing a hold of bed rails with a tight electrophysiology scientist, grabbing a hold of her catheter and pulling on it. Patient is trying to tell nurse something but can't get the words out. Patient does not follow directions. PRN Ativan given as ordered. Call light in reach.
[2020-09-28] VITALS (8 sets, daily range): BP systolic 140–190; BP diastolic 77–94; PULSE 71–88; RESP 20–24; TEMP 36–36.9; O2SAT 91–97
--- NOTE | 2020-09-28 00:15 | PC.NURSE ---
Patient calmed down for approximately an hour after Ativan was given and then started with behaviors again. Asked patient several times if she's hurting and she says no but due to her behaviors this nurse believes patient may be hurting and is unable to say it. Called Dr Brennan and reported patient's behaviors and how long the Ativan had helped. New orders received to give another 1mg of Ativan and to give [place] PRN.
[2020-09-28] MEDS: LORazepam INJ (*CRX) 2 MG/ML VIAL 1 MG IV PUSH ×3 (00:32→21:27)
[2020-09-28] MEDS: HYDROcodone/acetaminophen (*CRX) 5-325 MG TABLET 1 TAB PO ×2 (00:32→09:31)
--- NOTE | 2020-09-28 00:35 | PC.NURSE ---
Ativan 1mg and PRN [place] given as ordered.
--- NOTE | 2020-09-28 01:00 | PC.NURSE ---
Patient sleeping. Call light in reach.
--- NOTE | 2020-09-28 01:58 | PC.NURSE ---
Patient awake again, taking covers off and yelling out. Attempts to orient patient fail. Attempts to calm patient last only a minute or two.
--- NOTE | 2020-09-28 03:15 | PC.NURSE ---
Patient continues to yell out. She's now able to put words together, such as I can't get out of this bed , or Please help me, I have to get out of here . Patient got the tape loose for her IV. Reinforced with a tegaderm. Patient will be yelling out and when nurse goes in room, patient stops yelling and can't tell nurse what she wants. Soon as nurse leaves her room patient starts yelling again. Call light in reach.
[2020-09-28] MEDS: SODIUM CHLORIDE 0.9% IV 1,000 ML 100 ML IV CONT ×2 (05:20→15:28)
--- NOTE | 2020-09-28 07:49 | PM.IMHP ---
H&P: HPI History of Present Illness Date/Time: 09/28/20 07:49 Chief Complaint: altered mental status Narrative: Neida Tobias is a 65 year old female patient was brought into the ER for altered mental status by EMS. Report from ER was that patient arrived covered in fecal matter that was dry. Patient was found to have urinary tract infection. Patient is a poor historian. Past medical history insulin-dependent diabetic, hypertension, and likely depression Review of Systems Review of Systems: ROS unobtainable: Yes unobtainable due to medical condition [facility] Past Medical History Medical History Exogenous obesity Hypertension Insulin dependent diabetes mellitus Surgical History Surgical History H/O breast biopsy S/P unilateral salpingo-oophorectomy Family History Family History Mother AAA (abdominal aortic aneurysm) Hypertension Father Cancer Social History Social History Social History: Pt requires the help of his son to bathe and dress. Smoking packs per day: 1 Smoking cigarettes per day: 20.0 Years smoked: 10 Smoking pack-years: 10.00 Smoking status: Former smoker Tobacco type: cigarettes Additional smoking assessment comments: patient unable to answer Alcohol intake: never Substance use: never Other substance usage details: patient unable to answer Gender identity (if verbalized by the patient): Female Spiritual care concerns: No Meds Home Medications and Allergies Home Medications Medication Instructions Recorded Confirmed Type Lantus Solostar U-100 Insulin 40 unit SUBCUT HS 09/18/19 09/27/20 History Trulicity 3 mg SUBCUT WEEKLY 09/18/19 09/27/20 History atorvastatin 40 mg PO HS 09/18/19 09/27/20 History fluoxetine 20 mg PO BID 09/18/19 09/27/20 History insulin lispro [Humalog KwikPen 10 unit SUBCUT AC 09/18/19 09/27/20 History Insulin] lisinopril-hydrochlorothiazide 1 tablet PO DAILY 01/31/20 09/27/20 History amlodipine 5 mg PO DAILY 09/27/20 09/27/20 History bupropion HCl 150 mg PO BID 09/27/20 09/27/20 History metoprolol tartrate 50 mg PO Q12H 09/27/20 09/27/20 History Allergies Allergy/AdvReac Type Severity Reaction Status Date / Time No Known Allergies Allergy Verified 09/18/19 14:24 Vital Signs Vital Signs - 24 hr 09/27/20 15:32 09/27/20 16:40 09/27/20 18:24 Temperature 97.2 F L Pulse Rate 120 H 120 H 118 H Respiratory Rate 18 18 20 Blood Pressure 157/103 H 130/98 H 168/98 H Pulse Oximetry 96 96 95 09/27/20 18:40 09/27/20 20:00 09/27/20 20:04 Temperature 97.5 F L 96.8 F L Pulse Rate 118 H 100 100 Respiratory Rate 20 20 Blood Pressure 167/92 H 162/76 H Pulse Oximetry 97 94 09/27/20 22:00 09/28/20 00:00 09/28/20 02:00 Temperature 97.0 F L 97.8 F 97.5 F L Pulse Rate 110 H 80 82 Respiratory Rate 20 20 20 Blood Pressure 188/88 H 152/84 H 140/78 Pulse Oximetry 96 93 91 09/28/20 04:00 09/28/20 06:00 Temperature 97.6 F 96.8 F L Pulse Rate 88 74 Respiratory Rate 20 20 Blood Pressure 152/84 H 184/86 H Pulse Oximetry 93 96 Exam Const: General: comfortable, no acute distress, alert, awake and Physically active Resp: Effort & Inspection: normal respiratory effort Auscultation: clear to auscultation bilaterally Cardio: Rate: regular rate Heart sounds: S1 normal heart sound present and S2 normal heart sound present GI: GI Palp: Yes Soft to palpation and No Tenderness to palpation present (GI) Auscultation: normal bowel sounds Skin: General skin exam: dry skin Neuro: General: oriented to person Extrem: General: no pedal edema H&P: Results Labs Labs: Short CBC 09/27/20 Range/Units 16:22 WBC 11.1 H (4.8-10.8) K/mm3 Hgb 15.4 H (11.7-13.8) g/dL Hct 46.9 H (35.0-42.0)
[2020-09-28 08:29] LABS: Glucose Point of Care 202 (65-105)
[2020-09-28] MEDS: FLUoxetine HCL 20 MG CAPSULE PO ×2 (09:31→17:10)
[2020-09-28] MEDS: ENOXAPARIN 40 MG/0.4 ML SYRINGE SUB-Q (09:31)
[2020-09-28] MEDS: amLODIPine BESYLATE 5 MG TABLET PO (09:31)
[2020-09-28] MEDS: hydroCHLOROthiazide 12.5 MG CAPSULE PO (09:31)
[2020-09-28] MEDS: buPROPion HCL XL (24 HR) 150 MG TABCR PO ×2 (09:31→17:10)
[2020-09-28] MEDS: lisinopriL 20 MG TABLET PO (09:31)
[2020-09-28] MEDS: METOPROLOL TARTRATE 50 MG TAB PO ×2 (09:31→21:26)
[2020-09-28 11:33] LABS: Glucose Point of Care 214 (65-105)
[2020-09-28 16:51] LABS: Glucose Point of Care 132 (65-105)
--- NOTE | 2020-09-28 18:06 | PC.NURSE ---
Trimmed nails, cut mats out of back of hair. Sponge bath, shampoo cap, antifungal cream applied under breast, abdominal folds, lisset areas. Rest of body applied sensi care cream.
--- NOTE | 2020-09-28 20:00 | PC.NURSE ---
Patient remains confused. Oriented to self only. Calling out for son. Unable to feed or drink without assistance. continues on ABT treatment for UTI
--- NOTE | 2020-09-28 21:00 | PC.NURSE ---
Patient oriented sot self. remains on ABT abd fluids for UTI
[2020-09-28 21:09] LABS: Glucose Point of Care 187 (65-105)
[2020-09-28] MEDS: ATORVASTATIN 40 MG TABLET PO (21:26)
[2020-09-28] MEDS: INSULIN GLARGINE (*BKC) 100 UNITS/ML 40 UNITS SUB-Q (21:33)
--- NOTE | 2020-09-28 22:05 | PC.NURSE ---
Patient confused. Yelling out for son. Yelling at nurse she does not like anyone coming into her home and telling her what to do.l throwing legs over side of bed, pulling at catheter and IV tubing. PRN ativan given for anxiety
[2020-09-29] VITALS: BP 146/77; PULSE 77; RESP 16; TEMP 36.6; O2SAT 95
--- NOTE | 2020-09-29 00:15 | PC.NURSE ---
Patient no longer belligerent or calling loudly but continues to be restless. Continues on IV fluids and ABT
--- NOTE | 2020-09-29 01:20 | PC.NURSE ---
Patient continues to be restless. Resistive to turning and positioning. Fluids offered. Continues on IV abts and NS.
[2020-09-29] MEDS: SODIUM CHLORIDE 0.9% IV 1,000 ML 100 ML IV CONT (01:33)
[2020-09-29] MEDS: HYDROcodone/acetaminophen (*CRX) 5-325 MG TABLET 1 TAB PO ×2 (01:33→20:59)
--- NOTE | 2020-09-29 02:20 | PC.NURSE ---
PRN norco given for lower back pain. continues on IV ABT for UTI
--- NOTE | 2020-09-29 03:15 | PC.NURSE ---
Patient is no longer restless. oriented to self only. Continues on ABT for UTI
--- NOTE | 2020-09-29 04:20 | PC.NURSE ---
Patient resting. Alert to self only. Call light in reach. Remains on IV ABT and NS for UTI
--- NOTE | 2020-09-29 05:25 | PC.NURSE ---
Patient awake but appears calmer. Oral fluids given. Remains on IV ABT for UTI and on NS. Alert to self only
[2020-09-29 06:27] LABS: Basophils Absolute Auto 0.07 K/mm3 (0.00-0.10); Basophils Percent Auto 0.7 % (0.0-1.0); Eosinophils Absolute Auto 0.38 K/mm3 (0.02-0.50); Eosinophils Percent Auto 3.8 % (1.0-6.0); Hematocrit 41.8 % (35.0-42.0); Hemoglobin 13.4 g/dL (11.7-13.8); Immature Granulocyte Absolute 0.02 K/mm3 (0.00-0.00); Immature Granulocyte Percent A 0.2 % (0.0-0.0); Lymphocytes Absolute Auto 2.37 K/mm3 (1.10-4.50); Lymphocytes Percent Auto 23.5 % (18.0-42.0); Mean Corpuscular HGB Conc 32.1 g/dL (32.0-36.0); Mean Corpuscular Hemoglobin 27.7 pg (27.0-31.0); Mean Corpuscular Volume 86.4 fL (78.0-102.0); Mean Platelet Volume 9.7 fl (9.2-11.8); Monocytes Percent Auto 8.9 % (2.0-11.0); Neutrophils Absolute Auto 6.4 K/mm3 (1.7-7.2); Neutrophils Percent Auto 62.9 % (50.0-70.0); Platelet Count Result 285 K/mm3 (150-420); Red Blood Count 4.84 M/mm3 (4.20-5.40); Red Cell Distribution Width 13.5 % (11.6-14.4); White Blood Count 10.1 K/mm3 (4.8-10.8)
--- NOTE | 2020-09-29 06:30 | PC.NURSE ---
Patient resting. Remains on ABT for UTI. Alert to self only.
[2020-09-29 06:41] LABS: Alanine Aminotransferase 17 U/L (14-59); Albumin Level 1.6 g/dL (3.4-5.0); Alkaline Phosphatase 91 U/L (46-116); Anion Gap 8 mmol/L (8-16); Aspartate Amino Transferase 23 U/L (15-37); Bilirubin,Total 0.4 mg/dL (0.00-1.00); Blood Urea Nitrogen 17 mg/dL (7-18); Carbon Dioxide 29 mmol/L (21-32); Chloride 104 mmol/L (98-108); Estimated Glomerular Filt Rate 39; Glucose 160 mg/dL (70-99); Osmolality Calculated 296 mOsm/kg (285-295); Potassium 3.2 mmol/L (3.5-5.1); Sodium 141 mmol/L (136-145); Total Protein 5.6 g/dL (6.4-8.2)
[2020-09-29 07:57] LABS: Glucose Point of Care 155 (65-105)
[2020-09-29 08:00] VITALS: BP 158/92; PULSE 68; RESP 24; TEMP 36.7; O2SAT 94
[2020-09-29] MEDS: hydroCHLOROthiazide 12.5 MG CAPSULE PO (10:31)
[2020-09-29] MEDS: amLODIPine BESYLATE 5 MG TABLET 10 MG PO (10:31)
[2020-09-29] MEDS: FLUoxetine HCL 20 MG CAPSULE PO ×2 (10:31→17:21)
[2020-09-29 10:32] VITALS: PULSE 68
[2020-09-29] MEDS: buPROPion HCL XL (24 HR) 150 MG TABCR PO ×2 (10:32→17:21)
[2020-09-29] MEDS: lisinopriL 20 MG TABLET PO (10:32)
[2020-09-29] MEDS: METOPROLOL TARTRATE 50 MG TAB PO ×2 (10:32→20:58)
[2020-09-29] MEDS: ENOXAPARIN 40 MG/0.4 ML SYRINGE SUB-Q (10:38)
[2020-09-29] MEDS: POTASSIUM CHLORIDE 20 MEQ PACKET (FOR LIQUID) 40 MEQ PO (10:38)
[2020-09-29 11:50] LABS: Glucose Point of Care 241 (65-105)
--- NOTE | 2020-09-29 12:51 | PM.IMPN ---
Progress Note: A&P Assessment and Plan (1) Altered mental status: Code(s): R41.82 - Altered mental status, unspecified <Aaron BarrosoADRIANNA-C - Last Filed: 09/29/20 14:18> Status: Acute <Aaron BarrosoADRIANNA-C - Last Filed: 09/29/20 14:18> Assessment and Plan: 09/28/2020 altered mental status likely due to urinary tract infection, slightly improved this morning compared to report of status in ER 09/29/2020 Slight change for the better in mental status, oriented to self only, cooperative, can feed herself seldom and has required assistance often, looking for a call back for patient's son so as to get baseline mental status <Aaron BarrosoADRIANNA-C - Last Filed: 09/29/20 14:18> (2) Urinary tract infection: Onset Date: ~09/19/19 <Aaron BarrosoADRIANNA-C - Last Filed: 09/29/20 14:18> Code(s): N39.0 - Urinary tract infection, site not specified <Aaron BarrosoADRIANNA-C - Last Filed: 09/29/20 14:18> Status: Acute <Aaron BarrosoADRIANNA-C - Last Filed: 09/29/20 14:18> Assessment and Plan: 09/28/2020 patient given IV Rocephin, IV fluids at 100 mL/h 09/29/2020 continue as above <Aaron AwadADRIANNA ramos-C - Last Filed: 09/29/20 14:18> (3) Hypertension: Qualifiers: Hypertension type: unspecified Qualified Code(s): I10 - Essential (primary) hypertension <Aaron AwadADRIANNA ramos-C - Last Filed: 09/29/20 14:18> Code(s): I10 - Essential (primary) hypertension <Aaron AwadADRIANNA ramos-C - Last Filed: 09/29/20 14:18> Status: Chronic <Aaron AwadADRIANNA ramos-C - Last Filed: 09/29/20 14:18> Assessment and Plan: 09/28/2020 patient blood pressure was elevated increased home dose of Norvasc to 10 mg daily, will continue monitor vital signs and make any further adjustments or additions as needed 09/29/2020 no changes needed at this time <ESTRELLITA To - Last Filed: 09/29/20 14:18> (4) Insulin dependent diabetes mellitus: Code(s): E11.9 - Type 2 diabetes mellitus without complications; 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 <ESTRELLITA To - Last Filed: 09/29/20 14:18> Status: Chronic <ESTRELLITA To - Last Filed: 09/29/20 14:18> Assessment and Plan: 09/28/2020 patient takes Trulicity and insulin lispro, family members said they would be bringing her Trulicity in which she gets every Wednesday, patient is also on sliding scale insulin with hypoglycemic protocol in place 09/29/2020 continue with glycemic control at this time <ESTRELLITA To - Last Filed: 09/29/20 14:18> (5) Depression: Code(s): F32.9 - Major depressive disorder, single episode, unspecified <ESTRELLITA To - Last Filed: 09/29/20 14:18> Status: Acute <ESTRELLITA To - Last Filed: 09/29/20 14:18> Assessment and Plan: 09/28/2020 continue home medication of fluoxetine and bupropion 09/29/2020 continue with above regimen <ESTRELLITA To - Last Filed: 09/29/20 14:18> Subjective Date/time seen: 09/29/20 12:51 Patient is still confused however little improvement. Patient still does not know where she is or why she is here. She did remember my name about 30 seconds after I told her. However asking her again after half an hour had past she did not recall my name but did say she remembered me. Patient has lunch tray with her at this time and could not understand that there was a straw for heard a sip her drink from and she asked if someone could open the top for her. Will be contacted family to find out what her true baseline. <ESTRELLITA To - Last Filed: 09/29/20 14:18> Review of Systems Review of Systems: ROS unobtainable: Yes unobtainable due to medical condition <ESTRELLITA To - Last Filed: 09/29/20 14:18> Exam Const: General: cooperative, comfortable and no acute distress <ESTRELLITA To - Last Filed:
[2020-09-29 15:34] VITALS: BP 145/81; PULSE 64; TEMP 36.6; O2SAT 94
[2020-09-29 17:10] LABS: Glucose Point of Care 116 (65-105)
--- NOTE | 2020-09-29 19:50 | PC.NURSE ---
Patient alert to self only but appears to be calmer. requires frequent redirection. Still requires assistance with fluids, Continues in ABT fir UTI
[2020-09-29 20:47] LABS: Glucose Point of Care 150 (65-105)
[2020-09-29 20:58] VITALS: PULSE 77
[2020-09-29] MEDS: ATORVASTATIN 40 MG TABLET PO (20:58)
[2020-09-29] MEDS: INSULIN GLARGINE (*BKC) 100 UNITS/ML 40 UNITS SUB-Q (21:01)
--- NOTE | 2020-09-29 21:22 | PC.NURSE ---
Patient put to bed with sit to stand with difficulty. Could not follow commands to stand and to grasp onto handles. required assist of 3 for safety. PRN norco given at HS for lower back pain.
--- NOTE | 2020-09-29 22:10 | PC.NURSE ---
Patient alert to self only. Call light in reach. Requires assistance with meals and fluids. Remains on ABT for UTI.
--- NOTE | 2020-09-29 23:15 | PC.NURSE ---
Patient alert to self only. Did say she has lower back problems and has difficulty laying on her side.Continues on IV ABTs for UTI.
[2020-09-29 23:54] LABS: Glucose Point of Care 139 (65-105)
[2020-09-30] VITALS: BP 175/60; PULSE 65; RESP 16; TEMP 36.7; O2SAT 95
--- NOTE | 2020-09-30 00:15 | PC.NURSE ---
Patient resting. Call light in reach. Remains alert to self only. remains on ABT for UTI only
--- NOTE | 2020-09-30 01:20 | PC.NURSE ---
Patient alert to self only. Remains on ABT for UTI
--- NOTE | 2020-09-30 02:10 | PC.NURSE ---
Patient alert to self only. Remains on IV ABT for UTI
--- NOTE | 2020-09-30 03:15 | PC.NURSE ---
Patient remains oriented to self only. Remains on ABT for UTI
--- NOTE | 2020-09-30 04:15 | PC.NURSE ---
Patient remains on IV ABT for UTI. Oriented to self only
--- NOTE | 2020-09-30 05:15 | PC.NURSE ---
Patient alert to self only. Remains on ABT for UTI
[2020-09-30 06:11] LABS: Hematocrit 41.7 % (35.0-42.0); Hemoglobin 13.5 g/dL (11.7-13.8); Mean Corpuscular HGB Conc 32.4 g/dL (32.0-36.0); Mean Corpuscular Hemoglobin 27.8 pg (27.0-31.0); Mean Platelet Volume 9.6 fl (9.2-11.8); Platelet Count Result 298 K/mm3 (150-420); Red Blood Count 4.85 M/mm3 (4.20-5.40); Red Cell Distribution Width 13.5 % (11.6-14.4); White Blood Count 8.9 K/mm3 (4.8-10.8)
[2020-09-30 06:19] LABS: Anion Gap 8 mmol/L (8-16); Blood Urea Nitrogen 16 mg/dL (7-18); Calcium 7.9 mg/dL (8.5-10.1); Carbon Dioxide 29 mmol/L (21-32); Chloride 104 mmol/L (98-108); Estimated Glomerular Filt Rate 40; Glucose 103 mg/dL (70-99); Osmolality Calculated 293 mOsm/kg (285-295); Potassium 3.2 mmol/L (3.5-5.1); Sodium 141 mmol/L (136-145)
--- NOTE | 2020-09-30 06:20 | PC.NURSE ---
Patient awake. Oriented to self. When asked where she was she said [facility] . Fluids offered-requires assistance. Remains on IV ABT for UTI
[2020-09-30 07:35] VITALS: BP 184/76; PULSE 63; RESP 18; TEMP 36.6; O2SAT 95
[2020-09-30 07:45] LABS: Glucose Point of Care 84 (65-105)
--- NOTE | 2020-09-30 08:43 | PM.IMPN ---
Progress Note: A&P Assessment and Plan (1) Altered mental status: Code(s): R41.82 - Altered mental status, unspecified <Aaron Saavedra ESTRELLITA Barroso - Last Filed: 09/30/20 11:25> Status: Acute <Aaron Saavedra ESTRELLITA Barroso - Last Filed: 09/30/20 11:25> Assessment and Plan: 09/28/2020 altered mental status likely due to urinary tract infection, slightly improved this morning compared to report of status in ER 09/29/2020 Slight change for the better in mental status, oriented to self only, cooperative, can feed herself seldom and has required assistance often, looking for a call back for patient's son so as to get baseline mental status 09/30/2020 spoke with the son Remigio today who indicates patient sounds like she is at baseline according to him, patient is more alert today to person and place, was able to communicate better <Aaron AngelicaESTRELLITA Begum - Last Filed: 09/30/20 11:25> (2) Urinary tract infection: Onset Date: ~09/19/19 <Aaron DominguezESTRELLITA Beugm - Last Filed: 09/30/20 11:25> Code(s): N39.0 - Urinary tract infection, site not specified <Aaron DominguezESTRELLITA Begum - Last Filed: 09/30/20 11:25> Status: Acute <Aaron DominguezESTRELLITA Begum - Last Filed: 09/30/20 11:25> Assessment and Plan: 09/28/2020 patient given IV Rocephin, IV fluids at 100 mL/h 09/29/2020 continue as above 09/30/2020 .... <Aaron AngelicaESTRELLITA Begum - Last Filed: 09/30/20 11:25> (3) Hypertension: Qualifiers: Hypertension type: unspecified Qualified Code(s): I10 - Essential (primary) hypertension <ESTRELLITA To - Last Filed: 09/30/20 11:25> Code(s): I10 - Essential (primary) hypertension <ESTRELLITA To - Last Filed: 09/30/20 11:25> Status: Chronic <ESTRELLITA To - Last Filed: 09/30/20 11:25> Assessment and Plan: 09/28/2020 patient blood pressure was elevated increased home dose of Norvasc to 10 mg daily, will continue monitor vital signs and make any further adjustments or additions as needed 09/29/2020 no changes needed at this time 09/30/2020 added 25 mg losartan daily to the regimen <ESTRELLITA To - Last Filed: 09/30/20 11:25> (4) Insulin dependent diabetes mellitus: Code(s): E11.9 - Type 2 diabetes mellitus without complications; Z79.4 - 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 transportation 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 of insulin <ESTRELLITA To - Last Filed: 09/30/20 11:25> Status: Chronic <ESTRELLITA To - Last Filed: 09/30/20 11:25> Assessment and Plan: 09/28/2020 patient takes Trulicity and insulin lispro, family members said they would be bringing her Trulicity in which she gets every Wednesday, patient is also on sliding scale insulin with hypoglycemic protocol in place 09/29/2020 continue with glycemic control at this time 09/30/2020 continue with current regimen at this time, measure glucose around 100 today <ESTRELLITA To - Last Filed: 09/30/20 11:25> (5) Depression: Code(s): F32.9 - Major depressive disorder, single episode, unspecified <ESTRELLITA To - Last Filed: 09/30/20 11:25> Status: Acute <ESTRELLITA To - Last Filed: 09/30/20 11:25> Assessment and Plan: 09/28/2020 continue home medication of fluoxetine and bupropion 09/29/2020 continue with above regimen 09/30/2020 .... <ESTRELLITA To - Last Filed: 09/30/20 11:25> Subjective Date/time seen: 09/30/20 08:43 Patient is more alert today. She was able to tell me where she was and in general knew who the president was based on her saying I have been hearing about it all week on the tv. Patient has no complaints of any pain. I did call the son Remigio who indicated that the patient and he spoke yesterday evening and according to him the patient is basically at her baseline. He states that she is forgetful most of the time. <Aaron Barroso APN-Delmi - Last Filed: 09/30/20 11:25> Review of Sy
[2020-09-30] MEDS: POTASSIUM CHLORIDE 20 MEQ TABLET 40 MEQ PO (09:27)
[2020-09-30 09:28] VITALS: PULSE 76
[2020-09-30] MEDS: hydroCHLOROthiazide 12.5 MG CAPSULE PO (09:28)
[2020-09-30] MEDS: METOPROLOL TARTRATE 50 MG TAB PO ×2 (09:28→20:21)
[2020-09-30] MEDS: amLODIPine BESYLATE 5 MG TABLET 10 MG PO (09:28)
[2020-09-30] MEDS: ENOXAPARIN 40 MG/0.4 ML SYRINGE SUB-Q (09:29)
[2020-09-30] MEDS: LOSARTAN POTASSIUM 25 MG TABLET PO (09:29)
[2020-09-30] MEDS: lisinopriL 20 MG TABLET PO (09:29)
[2020-09-30] MEDS: buPROPion HCL XL (24 HR) 150 MG TABCR PO ×2 (09:30→18:20)
[2020-09-30] MEDS: FLUoxetine HCL 20 MG CAPSULE PO (09:30)
--- NOTE | 2020-09-30 11:09 | PC.NURSE ---
Patient status changed from OBS to Inpatient.
[2020-09-30] MEDS: HYDROcodone/acetaminophen (*CRX) 5-325 MG TABLET 1 TAB PO ×2 (11:49→20:00)
[2020-09-30 11:55] LABS: Glucose Point of Care 133 (65-105)
[2020-09-30 15:35] VITALS: BP 170/55; PULSE 66; RESP 18; TEMP 36.6; O2SAT 95
[2020-09-30 16:55] LABS: Glucose Point of Care 205 (65-105)
[2020-09-30 16:55] LABS: Glucose Point of Care > 450 (65-105)
[2020-09-30] MEDS: FLUoxetine HCL 10 MG CAPSULE 20 MG PO (18:18)
[2020-09-30 20:21] VITALS: PULSE 77
[2020-09-30] MEDS: ATORVASTATIN 40 MG TABLET PO (20:21)
[2020-09-30] MEDS: INSULIN GLARGINE (*BKC) 100 UNITS/ML 40 UNITS SUB-Q (20:29)
[2020-09-30 20:33] LABS: Glucose Point of Care 217 (65-105)
[2020-09-30 20:33] LABS: Glucose Point of Care 348 (65-105)
[2020-10-01] VITALS: BP 156/56; PULSE 95; RESP 16; TEMP 36.4; O2SAT 97
--- NOTE | 2020-10-01 02:37 | PC.NURSE ---
Patient resting. fluids at bedside. [place] patent dand draing yellow urine with some sediment.
--- NOTE | 2020-10-01 04:20 | PC.NURSE ---
Patient awake in room. Heels elevated off of bed. Positioned for comfort. Fluids offered and able to hold cups independently now. Still oriented to self only but is calm.
[2020-10-01 05:51] LABS: Hematocrit 43.4 % (35.0-42.0); Mean Corpuscular HGB Conc 32.3 g/dL (32.0-36.0); Mean Corpuscular Hemoglobin 28.1 pg (27.0-31.0); Mean Corpuscular Volume 87.1 fL (78.0-102.0); Mean Platelet Volume 9.4 fl (9.2-11.8); Platelet Count Result 306 K/mm3 (150-420); Red Blood Count 4.98 M/mm3 (4.20-5.40); Red Cell Distribution Width 13.5 % (11.6-14.4)
[2020-10-01 06:08] LABS: Alanine Aminotransferase 21 U/L (14-59); Albumin Level 1.8 g/dL (3.4-5.0); Alkaline Phosphatase 93 U/L (46-116); Anion Gap 5 mmol/L (8-16); Aspartate Amino Transferase 24 U/L (15-37); Bilirubin,Total 0.3 mg/dL (0.00-1.00); Blood Urea Nitrogen 17 mg/dL (7-18); Calcium 7.8 mg/dL (8.5-10.1); Carbon Dioxide 33 mmol/L (21-32); Chloride 102 mmol/L (98-108); Estimated Glomerular Filt Rate 37; Glucose 115 mg/dL (70-99); Osmolality Calculated 292 mOsm/kg (285-295); Potassium 3.5 mmol/L (3.5-5.1); Sodium 140 mmol/L (136-145); Total Protein 5.4 g/dL (6.4-8.2)
[2020-10-01 07:28] LABS: Glucose Point of Care 155 (65-105)
[2020-10-01 07:36] VITALS: BP 147/80; PULSE 59; RESP 18; TEMP 36.7; O2SAT 94
[2020-10-01] MEDS: ENOXAPARIN 40 MG/0.4 ML SYRINGE SUB-Q (08:48)
[2020-10-01] MEDS: hydroCHLOROthiazide 12.5 MG CAPSULE PO (08:49)
[2020-10-01] MEDS: FLUoxetine HCL 10 MG CAPSULE 20 MG PO ×2 (08:49→18:23)
[2020-10-01] MEDS: buPROPion HCL XL (24 HR) 150 MG TABCR PO ×2 (08:49→18:29)
[2020-10-01] MEDS: lisinopriL 20 MG TABLET 40 MG PO (08:50)
[2020-10-01] MEDS: amLODIPine BESYLATE 5 MG TABLET 10 MG PO (08:50)
[2020-10-01] MEDS: HYDROcodone/acetaminophen (*CRX) 5-325 MG TABLET 1 TAB PO (08:50)
[2020-10-01 08:51] VITALS: PULSE 59
[2020-10-01] MEDS: METOPROLOL TARTRATE 50 MG TAB PO ×2 (08:51→22:06)
--- NOTE | 2020-10-01 10:24 | WPDPN ---
Progress Note: A&P Assessment and Plan (1) Altered mental status: Code(s): R41.82 - Altered mental status, unspecified Status: Acute Assessment and Plan: patient remains confused She alert to person and the president possible secondary to UTI Accoridng to patient family member she is baseline Will continue to monitor BS pending Preliminary no growth of blood culture (2) Urinary tract infection: Onset Date: ~09/19/19 Code(s): N39.0 - Urinary tract infection, site not specified Status: Acute Assessment and Plan: continue rocephin day 3 Urine positive for WBCs and bacteria (3) Hypertension: Qualifiers: Hypertension type: unspecified Qualified Code(s): I10 - Essential (primary) hypertension Code(s): I10 - Essential (primary) hypertension Status: Chronic Assessment and Plan: slightly elevated Medication was previously adjusted continue amlodipine 10 mg, hydrochlorothiazide 12.5, metoprolol 50 mg p.o. every 12 hours and lisinopril 40 mg p.o. daily Continue vital signs Adjust medication as needed (4) Insulin dependent diabetes mellitus: Code(s): E11.9 - Type 2 diabetes mellitus without complications; Z79.4 - [facility] (current) use of insulin Status: Chronic Assessment and Plan: bs 174 Continue Lantus Humalog 10 units subcu 3 times daily Continue to monitor blood sugar and adjust medication as needed also continue hypoglycemic protocol (5) Depression: Code(s): F32.9 - Major depressive disorder, single episode, unspecified Status: Acute Assessment and Plan: continue home medication of fluoxetine and bupropion (6) Self-care deficit for feeding, bathing, and toileting: Code(s): Z74.1 - Need for assistance with personal care Status: Acute Assessment and Plan: Department of aging has been notified patient does not want to be placed in a long term family members does not want patient to be placed in a long term patient insists on returning home Review of Systems Review of Systems: All systems reviewed & are unremarkable except as noted in HPI and below (10 point system review) Exam Narrative: Exam Narrative: GENERAL: This is a well-nourished, well-developed patient, in no apparent distress with confusion HEAD: normocephalic, atraumatic. EYES: PERRL. Sclera clear/white. Vision is grossly intact. EARS: External ears normal, auditory canals clear and without drainage, TMs normal without perforation. Hearing grossly intact. NOSE: External nose normal with no obvious nasal discharge, nares without redness, no rhinorrhea. THROAT: Mucous membranes moist, posterior pharynx clear. NECK: Neck supple, non-tender without lymphadenopathy, masses or thyromegaly. CARDIOVASCULAR: Regular rate and rhythm without murmurs, gallops, or rubs. RESPIRATORY: Clear to auscultation. Breath sounds equal bilaterally. No wheezes, rales, or rhonchi. GASTROINTESTINAL: Abdomen soft, non-tender, nondistended. Bowel sounds are active. No hepato-splenomegaly, or palpable masses. No guarding. SKIN: warm, intact with no suspicious lesions or rash, good texture and turgor. NEURO: awake, alert, and oriented to person, place and time. There were no obvious focal neurologic abnormalities. Steady gait EXTREMITIES: Normal range of motion. No edema. No calf tenderness. Negative Homans sign bilaterally. BACK: Nontender without deformity or crepitance. No flank tenderness. Objective Data Vital Signs Vital Signs: Vital Signs - 24 hr 09/30/20 15:35 09/30/20 20:21 10/01/20 00:00 Temperature 97.8 F 97.6 F Pulse Rate 66 77 95 Respiratory Rate 18 16 Blood Pressure 170/55 H 156/56 H Pulse Oximetry 95 97 10/01/20 07:36 10/01/20 08:51 Temperature 98.0 F Pulse Rate 59 L 59 L Respiratory Rate 18 Blood Pressure 147/80 H Pulse Oximetry 94 Intake/Output Intake/Output: Intake & Output 09/28/20 09/29/20 0
[2020-10-01 11:36] LABS: Glucose Point of Care 174 (65-105)
--- NOTE | 2020-10-01 13:46 | PC.NURSE ---
Patient transferred from chair to bed with sit to stand. Patient moved left leg from platform, ripped scab off of left hodge. MARKET ASSET PROTECTION MANAGER Janet notified. Bandaid placed.
[2020-10-01 16:05] VITALS: BMI 11.0
[2020-10-01 16:15] VITALS: BMI 11.0
[2020-10-01 16:30] VITALS: BP 164/69; PULSE 62; RESP 18; TEMP 36.2; O2SAT 96
[2020-10-01 18:49] LABS: Glucose Point of Care 175 (65-105)
[2020-10-01 22:06] VITALS: PULSE 62
[2020-10-01] MEDS: ATORVASTATIN 40 MG TABLET PO (22:06)
[2020-10-01] MEDS: INSULIN GLARGINE (*BKC) 100 UNITS/ML 40 UNITS SUB-Q (22:06)
[2020-10-01 22:16] LABS: Glucose Point of Care 151 (65-105)
[2020-10-02] VITALS: BP 185/57; PULSE 62; RESP 20; TEMP 36.6; O2SAT 93
[2020-10-02 05:55] LABS: Hematocrit 41.8 % (35.0-42.0); Hemoglobin 13.5 g/dL (11.7-13.8); Mean Corpuscular HGB Conc 32.3 g/dL (32.0-36.0); Mean Corpuscular Hemoglobin 27.7 pg (27.0-31.0); Mean Corpuscular Volume 85.8 fL (78.0-102.0); Mean Platelet Volume 9.4 fl (9.2-11.8); Platelet Count Result 293 K/mm3 (150-420); Red Blood Count 4.87 M/mm3 (4.20-5.40); Red Cell Distribution Width 13.5 % (11.6-14.4); White Blood Count 7.6 K/mm3 (4.8-10.8)
[2020-10-02 06:19] LABS: Alanine Aminotransferase 18 U/L (14-59); Albumin Level 1.8 g/dL (3.4-5.0); Alkaline Phosphatase 88 U/L (46-116); Anion Gap 7 mmol/L (8-16); Aspartate Amino Transferase 19 U/L (15-37); Bilirubin,Total 0.3 mg/dL (0.00-1.00); Blood Urea Nitrogen 20 mg/dL (7-18); Calcium 7.7 mg/dL (8.5-10.1); Carbon Dioxide 30 mmol/L (21-32); Chloride 103 mmol/L (98-108); Estimated Glomerular Filt Rate 40; Glucose 120 mg/dL (70-99); Osmolality Calculated 293 mOsm/kg (285-295); Potassium 3.5 mmol/L (3.5-5.1); Sodium 140 mmol/L (136-145); Total Protein 5.3 g/dL (6.4-8.2)
[2020-10-02 07:22] LABS: Glucose Point of Care 145 (65-105)
[2020-10-02 07:44] VITALS: BP 148/78; PULSE 59; RESP 18; TEMP 36.6; O2SAT 92
[2020-10-02] MEDS: ENOXAPARIN 40 MG/0.4 ML SYRINGE SUB-Q (09:09)
[2020-10-02] MEDS: amLODIPine BESYLATE 5 MG TABLET 10 MG PO (09:09)
[2020-10-02] MEDS: buPROPion HCL XL (24 HR) 150 MG TABCR PO ×2 (09:09→17:05)
[2020-10-02] MEDS: lisinopriL 20 MG TABLET 40 MG PO (09:10)
[2020-10-02 09:11] VITALS: PULSE 59
[2020-10-02] MEDS: hydroCHLOROthiazide 12.5 MG CAPSULE PO (09:11)
[2020-10-02] MEDS: FLUoxetine HCL 10 MG CAPSULE 20 MG PO ×2 (09:11→17:05)
[2020-10-02] MEDS: METOPROLOL TARTRATE 50 MG TAB PO ×2 (09:11→20:14)
--- NOTE | 2020-10-02 11:16 | PC.NURSE ---
Patient vomited undigested food from breakfast. Patient states that she got too hot. Patient requested fan.
[2020-10-02 11:32] LABS: Glucose Point of Care 124 (65-105)
[2020-10-02] MEDS: HYDROcodone/acetaminophen (*CRX) 5-325 MG TABLET 1 TAB PO (11:42)
--- NOTE | 2020-10-02 12:19 | P.PN_ITS ---
Progress Note: A&P Assessment and Plan (1) Altered mental status: Code(s): R41.82 - Altered mental status, unspecified <MITCHEL Esparza - Last Filed: 10/02/20 12:23> Status: Acute <MITCHEL Esparza - Last Filed: 10/02/20 12:23> Assessment and Plan: * possible secondary to UTI * According to patient family member she is baseline * Will continue to monitor * BC pending * Preliminary no growth of blood culture <Janet Hopson MITCHEL - Last Filed: 10/02/20 12:23> (2) Urinary tract infection: Onset Date: ~09/19/19 <Janet Hopson MITCHEL - Last Filed: 10/02/20 12:23> Code(s): N39.0 - Urinary tract infection, site not specified <Janet Hopson MITCHEL - Last Filed: 10/02/20 12:23> Status: Acute <Janet Hopson MITCHEL - Last Filed: 10/02/20 12:23> Assessment and Plan: * continue rocephin day 4 * Urine positive for WBCs and bacteria <Janet Hopson MITCHEL - Last Filed: 10/02/20 12:23> (3) Hypertension: Qualifiers: Hypertension type: unspecified Qualified Code(s): I10 - Essential (primary) hypertension <Janet Hopson MITCHEL - Last Filed: 10/02/20 12:23> Code(s): I10 - Essential (primary) hypertension <Janet Hopson MITCHEL - Last Filed: 10/02/20 12:23> Status: Chronic <Janet Hopson MITCHEL - Last Filed: 10/02/20 12:23> Assessment and Plan: * slightly elevated but improved since previous blood pressure reading * Medication was previously adjusted continue amlodipine 10 mg, hydrochlorothiazide 12.5, metoprolol 50 mg p.o. every 12 hours and lisinopril 40 mg p.o. 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 insulin <Markellaurelia MichaelMTICHEL Corbett - Last Filed: 10/02/20 12:23> Status: Chronic <Janet MichaelMITCHEL Corbett - Last Filed: 10/02/20 12:23> Assessment and Plan: * bs below 300 * Continue Lantus Humalog 10 units subcu 3 times daily * Continue to monitor blood sugar and adjust medication as needed also continue hypoglycemic protocol <MarkellMITCHEL Willis - Last Filed: 10/02/20 12:23> (5) Depression: Code(s): F32.9 - Major depressive disorder, single episode, unspecified <MarkellMITCHEL Willis - Last Filed: 10/02/20 12:23> Status: Acute <MITCHEL Esparza - Last Filed: 10/02/20 12:23> Assessment and Plan: * continue home medication of fluoxetine and bupropion <MITCHEL Esparza - Last Filed: 10/02/20 12:23> (6) Self-care deficit for feeding, bathing, and toileting: Code(s): Z74.1 - Need for assistance with personal care <MITCHEL Esparza - Last Filed: 10/02/20 12:23> Status: Acute <MITCHEL Esparza - Last Filed: 10/02/20 12:23> Assessment and Plan: * Department of aging has been notified patient will be placed in a care home. <MITCHEL Esparza - Last Filed: 10/02/20 12:23> Review of Systems Review of Systems: All systems reviewed & are unremarkable except as noted in HPI and below (10 point system review) <MITCHEL Esparza - Last Filed: 10/02/20 12:23> Exam Narrative: Exam Narrative: GENERAL: This is a well-nourished, well-developed patient, in no apparent distress with confusion HEAD: norm
--- NOTE | 2020-10-02 12:19 | WPDPN ---
Progress Note: A&P Assessment and Plan (1) Altered mental status: Code(s): R41.82 - Altered mental status, unspecified <Janet Hopson MITCHEL - Last Filed: 10/02/20 12:23> Status: Acute <MITCHEL Esparza - Last Filed: 10/02/20 12:23> Assessment and Plan: possible secondary to UTI According to patient family member she is baseline Will continue to monitor BC pending Preliminary no growth of blood culture <Janet Hopson MITCHEL - Last Filed: 10/02/20 12:23> (2) Urinary tract infection: Onset Date: ~09/19/19 <Janet Hopson EVANGELISTADelmi - Last Filed: 10/02/20 12:23> Code(s): N39.0 - Urinary tract infection, site not specified <Janet Hopson MITCHEL - Last Filed: 10/02/20 12:23> Status: Acute <Janet Hopson MITCHEL - Last Filed: 10/02/20 12:23> Assessment and Plan: continue rocephin day 4 Urine positive for WBCs and bacteria <Janet Hopson MITCHEL - Last Filed: 10/02/20 12:23> (3) Hypertension: Qualifiers: Hypertension type: unspecified Qualified Code(s): I10 - Essential (primary) hypertension <Janet Hopson MITCHEL - Last Filed: 10/02/20 12:23> Code(s): I10 - Essential (primary) hypertension <Janet Hopson EVANGELISTADelmi - Last Filed: 10/02/20 12:23> Status: Chronic <Janet Hopson MITCHEL - Last Filed: 10/02/20 12:23> Assessment and Plan: slightly elevated but improved since previous blood pressure reading Medication was previously adjusted continue amlodipine 10 mg, hydrochlorothiazide 12.5, metoprolol 50 mg p.o. every 12 hours and lisinopril 40 mg p.o. 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 of insulin <MITCHEL Esparza - Last Filed: 10/02/20 12:23> Status: Chronic <MITCHEL Esparza - Last Filed: 10/02/20 12:23> Assessment and Plan: bs below 300 Continue Lantus Humalog 10 units subcu 3 times daily Continue to monitor blood sugar and adjust medication as needed also continue hypoglycemic protocol <MITCHEL Esparza - Last Filed: 10/02/20 12:23> (5) Depression: Code(s): F32.9 - Major depressive disorder, single episode, unspecified <MITCHEL Esparza - Last Filed: 10/02/20 12:23> Status: Acute <MITCHEL Esparza - Last Filed: 10/02/20 12:23> Assessment and Plan: continue home medication of fluoxetine and bupropion <MITCHEL Esparza - Last Filed: 10/02/20 12:23> (6) Self-care deficit for feeding, bathing, and toileting: Code(s): Z74.1 - Need for assistance with personal care <MITCHEL Esparza - Last Filed: 10/02/20 12:23> Status: Acute <MITCHEL Esparza - Last Filed: 10/02/20 12:23> Assessment and Plan: Department of aging has been notified patient will be placed in a group home. <MITCHEL Esparza - Last Filed: 10/02/20 12:23> Review of Systems Review of Systems: All systems reviewed & are unremarkable except as noted in HPI and below (10 point system review) <MITCHEL Esparza - Last Filed: 10/02/20 12:23> Exam Narrative: Exam Narrative: GENERAL: This is a well-nourished, well-developed patient, in no apparent distress with confusion HEAD: normocephalic, atraumatic. EYES: PERRL. Sclera clear/white. Vision is grossly intact. EARS: External ears normal, auditory canals clear and without drainage, TMs normal without perforation. Hearing grossly intact. NOSE: External nose normal with no obvious nasal discharge, nares without redness, no rhinorrhea. THROAT: Mucous membranes moist, posterior pharynx clear. NECK: Neck supple, non-te
[2020-10-02] MEDS: ONDANSETRON INJ 4 MG/2 ML VIAL IV PUSH (13:32)
--- NOTE | 2020-10-02 13:35 | PC.NURSE ---
Patient vomited undigested food x2. PRN zofran given
[2020-10-02] MEDS: polyethylene glycoL 3350 17 GM POWD.PACK PO (13:58)
[2020-10-02 16:00] VITALS: BP 143/93; PULSE 66; RESP 16; TEMP 36.1; O2SAT 92
[2020-10-02 17:14] LABS: Glucose Point of Care 103 (65-105)
[2020-10-02] MEDS: ATORVASTATIN 40 MG TABLET PO (20:14)
[2020-10-02] MEDS: INSULIN GLARGINE (*BKC) 100 UNITS/ML 40 UNITS SUB-Q (20:36)
[2020-10-02 20:40] LABS: Glucose Point of Care 159 (65-105)
[2020-10-03] VITALS: BP 153/67; PULSE 52; RESP 18; TEMP 36.1; O2SAT 94
[2020-10-03 05:41] LABS: Hematocrit 45.3 % (35.0-42.0); Hemoglobin 14.3 g/dL (11.7-13.8); Mean Corpuscular HGB Conc 31.6 g/dL (32.0-36.0); Mean Corpuscular Hemoglobin 27.4 pg (27.0-31.0); Mean Corpuscular Volume 86.8 fL (78.0-102.0); Mean Platelet Volume 9.1 fl (9.2-11.8); Platelet Count Result 312 K/mm3 (150-420); Red Blood Count 5.22 M/mm3 (4.20-5.40); Red Cell Distribution Width 13.5 % (11.6-14.4); White Blood Count 7.1 K/mm3 (4.8-10.8)
[2020-10-03 06:08] LABS: Alanine Aminotransferase 25 U/L (14-59); Albumin Level 1.8 g/dL (3.4-5.0); Alkaline Phosphatase 88 U/L (46-116); Anion Gap 6 mmol/L (8-16); Aspartate Amino Transferase 24 U/L (15-37); Bilirubin,Total 0.3 mg/dL (0.00-1.00); Blood Urea Nitrogen 19 mg/dL (7-18); Calcium 8.2 mg/dL (8.5-10.1); Carbon Dioxide 33 mmol/L (21-32); Chloride 103 mmol/L (98-108); Estimated Glomerular Filt Rate 42; Glucose 99 mg/dL (70-99); Osmolality Calculated 296 mOsm/kg (285-295); Potassium 3.4 mmol/L (3.5-5.1); Sodium 142 mmol/L (136-145); Total Protein 6.1 g/dL (6.4-8.2)
[2020-10-03 07:38] LABS: Glucose Point of Care 114 (65-105)
[2020-10-03 08:00] VITALS: BP 177/78; PULSE 60; RESP 18; TEMP 36.4; O2SAT 93
[2020-10-03] MEDS: ENOXAPARIN 40 MG/0.4 ML SYRINGE SUB-Q (08:46)
[2020-10-03] MEDS: POTASSIUM CHLORIDE 20 MEQ TABLET 40 MEQ PO (08:46)
[2020-10-03 08:51] VITALS: PULSE 60
[2020-10-03] MEDS: METOPROLOL TARTRATE 50 MG TAB PO ×2 (08:51→20:56)
[2020-10-03] MEDS: amLODIPine BESYLATE 5 MG TABLET 10 MG PO (08:51)
[2020-10-03] MEDS: lisinopriL 20 MG TABLET 40 MG PO (08:52)
[2020-10-03] MEDS: buPROPion HCL XL (24 HR) 150 MG TABCR PO ×2 (08:52→17:03)
[2020-10-03] MEDS: HYDROcodone/acetaminophen (*CRX) 5-325 MG TABLET 1 TAB PO ×2 (08:52→21:21)
[2020-10-03] MEDS: FLUoxetine HCL 10 MG CAPSULE 20 MG PO ×2 (08:52→17:04)
[2020-10-03] MEDS: hydroCHLOROthiazide 12.5 MG CAPSULE PO (08:52)
[2020-10-03 11:18] LABS: Glucose Point of Care 206 (65-105)
--- NOTE | 2020-10-03 12:11 | WPDPN ---
Progress Note: A&P Assessment and Plan (1) Altered mental status: Code(s): R41.82 - Altered mental status, unspecified Status: Acute Assessment and Plan: possible secondary to UTI According to patient family member she is baseline Will continue to monitor BC pending Preliminary no growth of blood culture (2) Urinary tract infection: Onset Date: ~09/19/19 Code(s): N39.0 - Urinary tract infection, site not specified Status: Acute Assessment and Plan: continue rocephin day 5 Urine positive for WBCs and bacteria (3) Hypertension: Qualifiers: Hypertension type: unspecified Qualified Code(s): I10 - Essential (primary) hypertension Code(s): I10 - Essential (primary) hypertension Status: Chronic Assessment and Plan: slightly elevated but improved since previous blood pressure reading Medication was previously adjusted continue amlodipine 10 mg, hydrochlorothiazide 12.5, metoprolol 50 mg p.o. every 12 hours and lisinopril 40 mg p.o. daily hydralazine as needed with parameters placed Continue vital signs Adjust medication as needed (4) Insulin dependent diabetes mellitus: Code(s): E11.9 - Type 2 diabetes mellitus without complications; Z79.4 - intermodal dispatcher (current) use of insulin Status: Chronic Assessment and Plan: bs below 300 Continue Lantus Humalog 10 units subcu 3 times daily Continue to monitor blood sugar and adjust medication as needed also continue hypoglycemic protocol (5) Depression: Code(s): F32.9 - Major depressive disorder, single episode, unspecified Status: Acute Assessment and Plan: continue home medication of fluoxetine and bupropion (6) Self-care deficit for feeding, bathing, and toileting: Code(s): Z74.1 - Need for assistance with personal care Status: Acute Assessment and Plan: Department of aging has been notified patient will be placed in a longterm. Review of Systems Review of Systems: All systems reviewed & are unremarkable except as noted in HPI and below (10 point system review) Exam Narrative: Exam Narrative: GENERAL: This is a well-nourished, well-developed patient, in no apparent distress with confusion HEAD: normocephalic, atraumatic. EYES: PERRL. Sclera clear/white. Vision is grossly intact. EARS: External ears normal, auditory canals clear and without drainage, TMs normal without perforation. Hearing grossly intact. NOSE: External nose normal with no obvious nasal discharge, nares without redness, no rhinorrhea. THROAT: Mucous membranes moist, posterior pharynx clear. NECK: Neck supple, non-tender without lymphadenopathy, masses or thyromegaly. CARDIOVASCULAR: Regular rate and rhythm without murmurs, gallops, or rubs. RESPIRATORY: Clear to auscultation. Breath sounds equal bilaterally. No wheezes, rales, or rhonchi. GASTROINTESTINAL: Abdomen soft, non-tender, nondistended. Bowel sounds are active. No hepato-splenomegaly, or palpable masses. No guarding. SKIN: Multiple lower extremity skin tears NEURO: awake, alert, and oriented to person, place and time. There were no obvious focal neurologic abnormalities. Steady gait EXTREMITIES: Normal range of motion. No edema. No calf tenderness. Negative Homans sign bilaterally. BACK: Nontender without deformity or crepitance. No flank tenderness. Objective Data Vital Signs Vital Signs: Vital Signs - 24 hr 10/02/20 16:00 10/03/20 00:00 10/03/20 08:00 Temperature 96.9 F L 97.0 F L 97.6 F Pulse Rate 66 52 L 60 Respiratory Rate 16 18 18 Blood Pressure 143/93 H 153/67 H 177/78 H Pulse Oximetry 92 94 93 10/03/20 08:51 Temperature Pulse Rate 60 Respiratory Rate Blood Pressure Pulse Oximetry Intake/Output Intake/Output: Intake & Output 09/30/20 10/01/20 10/02/20 10/03/20 23:59 23:59 23:59 23:59 Intake Total 1750 1930 820 560 Output Total 1500 1400 1250 625 Balance 250 530 -430 -65
[2020-10-03 15:45] VITALS: BP 132/62; PULSE 56; RESP 18; TEMP 36.8; O2SAT 93
[2020-10-03 16:33] LABS: Glucose Point of Care 125 (65-105)
[2020-10-03 20:52] LABS: Glucose Point of Care 106 (65-105)
[2020-10-03 20:56] VITALS: PULSE 60
[2020-10-03] MEDS: ATORVASTATIN 40 MG TABLET PO (20:57)
[2020-10-03] MEDS: INSULIN GLARGINE (*BKC) 100 UNITS/ML 40 UNITS SUB-Q (21:59)
[2020-10-04] VITALS: BP 164/78; PULSE 74; RESP 198; TEMP 36.1; O2SAT 92
--- NOTE | 2020-10-04 00:24 | PC.NURSE ---
Patient refused to be repositioned and turned to either side. Stated she's not comfortable like that .
--- NOTE | 2020-10-04 02:17 | PC.NURSE ---
Patient refused to be turned and repositioned off back. Patient sleeping on back per patient request. HOB elevated at 45 degrees.
[2020-10-04 05:59] LABS: Hematocrit 42.2 % (35.0-42.0); Hemoglobin 13.5 g/dL (11.7-13.8); Mean Corpuscular Hemoglobin 27.8 pg (27.0-31.0); Mean Corpuscular Volume 86.8 fL (78.0-102.0); Mean Platelet Volume 9.4 fl (9.2-11.8); Platelet Count Result 323 K/mm3 (150-420); Red Blood Count 4.86 M/mm3 (4.20-5.40); Red Cell Distribution Width 13.4 % (11.6-14.4); White Blood Count 7.3 K/mm3 (4.8-10.8)
[2020-10-04 06:09] LABS: Alanine Aminotransferase 27 U/L (14-59); Albumin Level 1.9 g/dL (3.4-5.0); Alkaline Phosphatase 94 U/L (46-116); Anion Gap 5 mmol/L (8-16); Aspartate Amino Transferase 29 U/L (15-37); Bilirubin,Total 0.2 mg/dL (0.00-1.00); Blood Urea Nitrogen 21 mg/dL (7-18); Calcium 7.8 mg/dL (8.5-10.1); Carbon Dioxide 31 mmol/L (21-32); Chloride 101 mmol/L (98-108); Estimated Glomerular Filt Rate 40; Glucose 194 mg/dL (70-99); Osmolality Calculated 292 mOsm/kg (285-295); Potassium 3.7 mmol/L (3.5-5.1); Sodium 137 mmol/L (136-145); Total Protein 5.2 g/dL (6.4-8.2)
[2020-10-04 07:31] LABS: Glucose Point of Care 198 (65-105)
[2020-10-04 07:36] VITALS: BP 149/67; PULSE 56; RESP 18; TEMP 36.8; O2SAT 93
[2020-10-04] MEDS: hydroCHLOROthiazide 12.5 MG CAPSULE PO (08:42)
[2020-10-04] MEDS: ENOXAPARIN 40 MG/0.4 ML SYRINGE SUB-Q (08:42)
[2020-10-04] MEDS: polyethylene glycoL 3350 17 GM POWD.PACK PO (08:42)
[2020-10-04 08:43] VITALS: PULSE 56
[2020-10-04] MEDS: FLUoxetine HCL 10 MG CAPSULE 20 MG PO (08:43)
[2020-10-04] MEDS: lisinopriL 20 MG TABLET 40 MG PO (08:43)
[2020-10-04] MEDS: HYDROcodone/acetaminophen (*CRX) 5-325 MG TABLET 1 TAB PO ×2 (08:43→21:39)
[2020-10-04] MEDS: buPROPion HCL XL (24 HR) 150 MG TABCR PO (08:43)
[2020-10-04] MEDS: METOPROLOL TARTRATE 50 MG TAB PO ×2 (08:43→21:36)
[2020-10-04] MEDS: amLODIPine BESYLATE 5 MG TABLET 10 MG PO (08:43)
--- NOTE | 2020-10-04 09:35 | PC.NURSE ---
Mini mental completed on patient 11 out of 30. Severe cognitive impairment
[2020-10-04 11:33] LABS: Glucose Point of Care 226 (65-105)
--- NOTE | 2020-10-04 11:53 | P.PN_ITS ---
Progress Note: A&P Assessment and Plan (1) Altered mental status: Code(s): R41.82 - Altered mental status, unspecified <MITCHEL Esparza - Last Filed: 10/04/20 12:08> Status: Acute <MITCHEL Esparza - Last Filed: 10/04/20 12:08> Assessment and Plan: * Improving * possible secondary to UTI vs cva * According to patient family member she is baseline * Will continue to monitor * BC no growth <Janet Hopson MITCHEL - Last Filed: 10/04/20 12:08> (2) Urinary tract infection: Onset Date: ~09/19/19 <Janet Hopson MITCHEL - Last Filed: 10/04/20 12:08> Code(s): N39.0 - Urinary tract infection, site not specified <Janet Hopson MITCHEL - Last Filed: 10/04/20 12:08> Status: Acute <Janet Hopson MITCHEL - Last Filed: 10/04/20 12:08> Assessment and Plan: * continue rocephin day 6 * Urine positive for WBCs and bacteria <Janet Hopson MITCHEL - Last Filed: 10/04/20 12:08> (3) Hypertension: Qualifiers: Hypertension type: unspecified Qualified Code(s): I10 - Essential (primary) hypertension <Janet Hopson MITCHEL - Last Filed: 10/04/20 12:08> Code(s): I10 - Essential (primary) hypertension <Janet Hopson MITCHEL - Last Filed: 10/04/20 12:08> Status: Chronic <Janet Hopson MITCHEL - Last Filed: 10/04/20 12:08> Assessment and Plan: * slightly elevated but improved since previous blood pressure reading * Medication was previously adjusted continue amlodipine 10 mg, hydrochlorothiazide 12.5, metoprolol 50 mg p.o. every 12 hours and lisinopril 40 mg p.o. daily hydralazine as needed with parameters placed * Continue vital signs * Adjust medication as needed <Janet Hopson MITCHEL - Last Filed: 10/04/20 12:08> (4) Insulin dependent diabetes mellitus: Code(s): E11.9 - Type 2 diabetes mellitus without complications; Z79.4 - environmental services worker (current) use of insulin <Janet HopsonMITCHEL - Last Filed: 10/04/20 12:08> Status: Chronic <Janet Hopson CONCRETE BLOCK MAKER-C - Last Filed: 10/04/20 12:08> Assessment and Plan: * bs below 300 * Continue Lantus Humalog 10 units subcu 3 times daily * Continue to monitor blood sugar and adjust medication as needed also continue hypoglycemic protocol <Janet RodriguezCelina Mark Anthony CONCRETE BLOCK MAKER-C - Last Filed: 10/04/20 12:08> (5) Depression: Code(s): F32.9 - Major depressive disorder, single episode, unspecified <Janet Hopson CONCRETE BLOCK MAKER-C - Last Filed: 10/04/20 12:08> Status: Acute <Janet HopsonMITCHEL - Last Filed: 10/04/20 12:08> Assessment and Plan: * continue home medication of fluoxetine and bupropion <Janet RodriguezCelina Hopson CONCRETE BLOCK MAKER-C - Last Filed: 10/04/20 12:08> (6) Self-care deficit for feeding, bathing, and toileting: Code(s): Z74.1 - Need for assistance with personal care <Janet RodriguezCelina Hopson CONCRETE BLOCK MAKER-C - Last Filed: 10/04/20 12:08> Status: Acute <Janet RodriguezCelina Mark AnthonyMITCHEL - Last Filed: 10/04/20 12:08> Assessment and Plan: * Department of aging has been notified patient will be placed in a alf. <Janet RodriguezEVANGELISTA CorbettC - Last Filed: 10/04/20 12:08> (7) CVA (cerebral vascular accident): Code(s): I63.9 - Cerebral infarction, unspecified <Janet Montejo Mark Anthony CONCRETE BLOCK MAKER-C - Last Filed: 10/04/20 12:08> Status: Acute <Markellaurelia MichaelMICTHEL Corbett - Last Filed: 10/04/20 12:08> Assessment and Plan: * CT indicates Age-indeterminate infarct in cerebellum on the right. * MRI pending, will contact neurology once results
--- NOTE | 2020-10-04 11:53 | WPDPN ---
Progress Note: A&P Assessment and Plan (1) Altered mental status: Code(s): R41.82 - Altered mental status, unspecified <MITCHEL Esparza - Last Filed: 10/04/20 12:08> Status: Acute <MITCHEL Esparza - Last Filed: 10/04/20 12:08> Assessment and Plan: Improving possible secondary to UTI vs cva According to patient family member she is baseline Will continue to monitor BC no growth <Janet Hopson MITCHEL - Last Filed: 10/04/20 12:08> (2) Urinary tract infection: Onset Date: ~09/19/19 <Janet Hopson MITCHEL - Last Filed: 10/04/20 12:08> Code(s): N39.0 - Urinary tract infection, site not specified <Janet Hopson EVANGELISTAC - Last Filed: 10/04/20 12:08> Status: Acute <Janet Hopson MITCHEL - Last Filed: 10/04/20 12:08> Assessment and Plan: continue rocephin day 6 Urine positive for WBCs and bacteria <Janet Hopson MITCHEL - Last Filed: 10/04/20 12:08> (3) Hypertension: Qualifiers: Hypertension type: unspecified Qualified Code(s): I10 - Essential (primary) hypertension <Janet Hopson MITCHEL - Last Filed: 10/04/20 12:08> Code(s): I10 - Essential (primary) hypertension <Janet Hopson MITCHEL - Last Filed: 10/04/20 12:08> Status: Chronic <Janet Hopson MITCHEL - Last Filed: 10/04/20 12:08> Assessment and Plan: slightly elevated but improved since previous blood pressure reading Medication was previously adjusted continue amlodipine 10 mg, hydrochlorothiazide 12.5, metoprolol 50 mg p.o. every 12 hours and lisinopril 40 mg p.o. daily hydralazine as needed with parameters placed Continue vital signs Adjust medication as needed <Janet RodriguezCelina Mark Anthony MITCHEL - Last Filed: 10/04/20 12:08> (4) Insulin dependent diabetes mellitus: Code(s): E11.9 - Type 2 diabetes mellitus without complications; Z79.4 - assisted (current) use of insulin <Janet HopsonLACYThongDelmi - Last Filed: 10/04/20 12:08> Status: Chronic <Janet Hopson LINING VAMPERThongDelmi - Last Filed: 10/04/20 12:08> Assessment and Plan: bs below 300 Continue Lantus Humalog 10 units subcu 3 times daily Continue to monitor blood sugar and adjust medication as needed also continue hypoglycemic protocol <Janet RodriguezCelina Mark Anthony LINING VAMPERThongDelmi - Last Filed: 10/04/20 12:08> (5) Depression: Code(s): F32.9 - Major depressive disorder, single episode, unspecified <Janet Hopson LINING VAMPERThongDelmi - Last Filed: 10/04/20 12:08> Status: Acute <Janet HopsonLACYThongDelmi - Last Filed: 10/04/20 12:08> Assessment and Plan: continue home medication of fluoxetine and bupropion <Janet RodriguezCelina Hopson LINING VAMPERThongDelmi - Last Filed: 10/04/20 12:08> (6) Self-care deficit for feeding, bathing, and toileting: Code(s): Z74.1 - Need for assistance with personal care <Janet Hopson LINING VAMPER-C - Last Filed: 10/04/20 12:08> Status: Acute <Janet RodriguezMITCHEL Corbett - Last Filed: 10/04/20 12:08> Assessment and Plan: Department of aging has been notified patient will be placed in a senior living. <Janet RodriguezMITCHEL Corbett - Last Filed: 10/04/20 12:08> (7) CVA (cerebral vascular accident): Code(s): I63.9 - Cerebral infarction, unspecified <Janet RodriguezMITCHEL Corbett - Last Filed: 10/04/20 12:08> Status: Acute <Janet RodriguezCelina Hopson LINING VAMPER-C - Last Filed: 10/04/20 12:08> Assessment and Plan: CT indicates Age-indeterminate infarct in cerebellum on the right. MRI pending, will contact neurology once results are complete and as per recommendations Mini-Mental exam 08/19 severe cognitive impairment Continue physical therapy/Occupational Therapy <Janet Hopson, LINING VAMPER-C - Last Filed: 10/04/20 12:08> Review of Systems Review of Systems: All systems reviewed & are unremarkable except as noted in HPI and below (10 point system review) <Janet Fregoso
[2020-10-04] MEDS: ONDANSETRON INJ 4 MG/2 ML VIAL IV PUSH (15:47)
[2020-10-04 16:00] VITALS: BP 127/95; PULSE 62; RESP 18; TEMP 36.6; O2SAT 96
[2020-10-04 16:31] LABS: Glucose Point of Care 145 (65-105)
[2020-10-04 21:03] LABS: Glucose Point of Care 179 (65-105)
[2020-10-04 21:36] VITALS: PULSE 64
[2020-10-04] MEDS: ATORVASTATIN 40 MG TABLET PO (21:36)
[2020-10-04] MEDS: INSULIN GLARGINE (*BKC) 100 UNITS/ML 40 UNITS SUB-Q (21:41)
[2020-10-05] VITALS: BP 178/59; PULSE 54; RESP 20; TEMP 36.1; O2SAT 91
[2020-10-05 05:50] LABS: Hematocrit 41.6 % (35.0-42.0); Hemoglobin 13.4 g/dL (11.7-13.8); Mean Corpuscular HGB Conc 32.2 g/dL (32.0-36.0); Mean Corpuscular Hemoglobin 28.2 pg (27.0-31.0); Mean Corpuscular Volume 87.4 fL (78.0-102.0); Mean Platelet Volume 9.1 fl (9.2-11.8); Platelet Count Result 307 K/mm3 (150-420); Red Blood Count 4.76 M/mm3 (4.20-5.40); Red Cell Distribution Width 13.4 % (11.6-14.4); White Blood Count 6.9 K/mm3 (4.8-10.8)
[2020-10-05 06:13] LABS: Alanine Aminotransferase 27 U/L (14-59); Albumin Level 1.8 g/dL (3.4-5.0); Alkaline Phosphatase 84 U/L (46-116); Anion Gap 1 mmol/L (8-16); Aspartate Amino Transferase 23 U/L (15-37); Bilirubin,Total 0.2 mg/dL (0.00-1.00); Blood Urea Nitrogen 24 mg/dL (7-18); Calcium 8.3 mg/dL (8.5-10.1); Carbon Dioxide 34 mmol/L (21-32); Chloride 100 mmol/L (98-108); Estimated Glomerular Filt Rate 42; Glucose 191 mg/dL (70-99); Osmolality Calculated 289 mOsm/kg (285-295); Potassium 3.8 mmol/L (3.5-5.1); Sodium 135 mmol/L (136-145); Total Protein 5.9 g/dL (6.4-8.2)
--- NOTE | 2020-10-05 06:19 | PC.NURSE ---
Patient has refused to be turned and repositioned. Stated likes to sleep on back, education given per gag writer. radiography technician notified.
[2020-10-05 07:35] VITALS: BP 161/61; PULSE 55; RESP 18; TEMP 35.8; O2SAT 97
--- NOTE | 2020-10-05 09:00 | PC.NURSE ---
Patient to have MRI at 0930. Breakfast tray and medication being held until after MRI to prevent patient from getting nauseous with movement. BOOKKEEPING TEACHER notified.
--- NOTE | 2020-10-05 09:04 | P.PN_ITS ---
Progress Note: A&P Assessment and Plan (1) Altered mental status: Code(s): R41.82 - Altered mental status, unspecified Status: Acute Assessment and Plan: * Improving * possible secondary to UTI vs cva * According to patient family member she is baseline * Will continue to monitor * BC no growth (2) Urinary tract infection: Onset Date: ~09/19/19 Code(s): N39.0 - Urinary tract infection, site not specified Status: Acute Assessment and Plan: * continue rocephin day 7 * Urine positive for WBCs and bacteria (3) Hypertension: Qualifiers: Hypertension type: unspecified Qualified Code(s): I10 - Essential (primary) hypertension Code(s): I10 - Essential (primary) hypertension Status: Chronic Assessment and Plan: * slightly elevated but improved since previous blood pressure reading * Medication was previously adjusted continue amlodipine 10 mg, hydrochlorothiazide 12.5, metoprolol 50 mg p.o. every 12 hours and lisinopril 40 mg p.o. daily hydralazine as needed with parameters placed * Continue vital signs * Adjust medication as needed (4) Insulin dependent diabetes mellitus: Code(s): E11.9 - Type 2 diabetes mellitus without complications; Z79.4 - custodial (current) use of insulin Status: Chronic Assessment and Plan: * bs below 300 * Continue Lantus Humalog 10 units subcu 3 times daily * Continue to monitor blood sugar and adjust medication as needed also continue hypoglycemic protocol (5) Depression: Code(s): F32.9 - Major depressive disorder, single episode, unspecified Status: Acute Assessment and Plan: * continue home medication of fluoxetine and bupropion (6) Self-care deficit for feeding, bathing, and toileting: Code(s): Z74.1 - Need for assistance with personal care Status: Acute Assessment and Plan: * Department of aging has been notified patient will be placed in a half-way. (7) CVA (cerebral vascular accident): Code(s): I63.9 - Cerebral infarction, unspecified Status: Acute Assessment and Plan: * CT indicates Age-indeterminate infarct in cerebellum on the right. * MRI pending, will contact neurology once results are complete and as per recommendations * Mini-Mental exam 08/19 severe cognitive impairment * Continue physical therapy/Occupational Therapy * Review of Systems Review of Systems: All systems reviewed & are unremarkable except as noted in HPI and below (10 point system review) Exam Narrative: Exam Narrative: GENERAL: This is a well-nourished, well-developed patient, in no apparent distress with confusion HEAD: normocephalic, atraumatic. EYES: PERRL. Sclera clear/white. Vision is grossly intact. EARS: External ears normal, auditory canals clear and without drainage, TMs normal without perforation. Hearing grossly intact. NOSE: External nose normal with no obvious nasal discharge, nares without redness, no rhinorrhea. THROAT: Mucous membranes moist, posterior pharynx clear. NECK: Neck supple, non-tender without lymphadenopathy, masses or thyromegaly. CARDIOVASCULAR: Regular rate and rhythm without murmurs, gallops, or rubs. RESPIRATORY: Clear to auscultation. Breath sounds equal bilaterally. No wheezes, rales, or rhonchi. GASTROINTESTINAL: Abdomen soft, non-tender, nondistended. Bowel sounds are activ e. No hepato-splenomegaly, or palpable masses. No guarding. SKIN: Multiple lower extremity skin tears NEURO: awake, alert, and oriented to person, place and time. There wer
--- NOTE | 2020-10-05 09:04 | WPDPN ---
Progress Note: A&P Assessment and Plan (1) Altered mental status: Code(s): R41.82 - Altered mental status, unspecified Status: Acute Assessment and Plan: Improving possible secondary to UTI vs cva According to patient family member she is baseline Will continue to monitor BC no growth (2) Urinary tract infection: Onset Date: ~09/19/19 Code(s): N39.0 - Urinary tract infection, site not specified Status: Acute Assessment and Plan: continue rocephin day 7 Urine positive for WBCs and bacteria (3) Hypertension: Qualifiers: Hypertension type: unspecified Qualified Code(s): I10 - Essential (primary) hypertension Code(s): I10 - Essential (primary) hypertension Status: Chronic Assessment and Plan: slightly elevated but improved since previous blood pressure reading Medication was previously adjusted continue amlodipine 10 mg, hydrochlorothiazide 12.5, metoprolol 50 mg p.o. every 12 hours and lisinopril 40 mg p.o. daily hydralazine as needed with parameters placed Continue vital signs Adjust medication as needed (4) Insulin dependent diabetes mellitus: Code(s): E11.9 - Type 2 diabetes mellitus without complications; Z79.4 - skilled nursing (current) use of insulin Status: Chronic Assessment and Plan: bs below 300 Continue Lantus Humalog 10 units subcu 3 times daily Continue to monitor blood sugar and adjust medication as needed also continue hypoglycemic protocol (5) Depression: Code(s): F32.9 - Major depressive disorder, single episode, unspecified Status: Acute Assessment and Plan: continue home medication of fluoxetine and bupropion (6) Self-care deficit for feeding, bathing, and toileting: Code(s): Z74.1 - Need for assistance with personal care Status: Acute Assessment and Plan: Department of aging has been notified patient will be placed in a [facility]. (7) CVA (cerebral vascular accident): Code(s): I63.9 - Cerebral infarction, unspecified Status: Acute Assessment and Plan: CT indicates Age-indeterminate infarct in cerebellum on the right. MRI pending, will contact neurology once results are complete and as per recommendations Mini-Mental exam 08/19 severe cognitive impairment Continue physical therapy/Occupational Therapy Review of Systems Review of Systems: All systems reviewed & are unremarkable except as noted in HPI and below (10 point system review) Exam Narrative: Exam Narrative: GENERAL: This is a well-nourished, well-developed patient, in no apparent distress with confusion HEAD: normocephalic, atraumatic. EYES: PERRL. Sclera clear/white. Vision is grossly intact. EARS: External ears normal, auditory canals clear and without drainage, TMs normal without perforation. Hearing grossly intact. NOSE: External nose normal with no obvious nasal discharge, nares without redness, no rhinorrhea. THROAT: Mucous membranes moist, posterior pharynx clear. NECK: Neck supple, non-tender without lymphadenopathy, masses or thyromegaly. CARDIOVASCULAR: Regular rate and rhythm without murmurs, gallops, or rubs. RESPIRATORY: Clear to auscultation. Breath sounds equal bilaterally. No wheezes, rales, or rhonchi. GASTROINTESTINAL: Abdomen soft, non-tender, nondistended. Bowel sounds are active. No hepato-splenomegaly, or palpable masses. No guarding. SKIN: Multiple lower extremity skin tears NEURO: awake, alert, and oriented to person, place and time. There were no obvious focal neurologic abnormalities. Steady gait EXTREMITIES: Normal range of motion. No edema. No calf tenderness. Negative Homans sign bilaterally. BACK: Nontender without deformity or crepitance. No flank tenderness. Objective Data Vital Signs Vital Signs: Vital Signs - 24 hr 10/04/20 16:00 10/04/20 21:36 10/05/20 00:00 Temperature 97.9 F 97.0 F L Pulse Rate 62 64 54 L Respiratory Rate 18
[2020-10-05] MEDS: LORazepam INJ (*CRX) 2 MG/ML VIAL 0.25 MG IV PUSH (09:17)
--- NOTE | 2020-10-05 09:18 | PC.NURSE ---
HOVER MAT applied under patient to assist in transferring patient.
--- NOTE | 2020-10-05 10:20 | PC.NURSE ---
Patient back from MRI. Patient had very small amount of emesis about 10ml, some phlem noted, during transport from MRI to room. Clean gown applied. Patient states she is okay now and denies need for nausea mediation.
[2020-10-05] MEDS: ASPIRIN 325 MG ENTERIC TABLET PO (11:28)
[2020-10-05 11:29] VITALS: PULSE 55
[2020-10-05] MEDS: CLOPIDOGREL BISULFATE 75 MG TABLET PO (11:29)
[2020-10-05] MEDS: lisinopriL 20 MG TABLET 40 MG PO (11:29)
[2020-10-05] MEDS: FLUoxetine HCL 10 MG CAPSULE 20 MG PO ×2 (11:29→16:33)
[2020-10-05] MEDS: amLODIPine BESYLATE 5 MG TABLET 10 MG PO (11:29)
[2020-10-05] MEDS: METOPROLOL TARTRATE 50 MG TAB PO ×2 (11:29→20:55)
[2020-10-05] MEDS: ENOXAPARIN 40 MG/0.4 ML SYRINGE SUB-Q (11:29)
[2020-10-05] MEDS: buPROPion HCL XL (24 HR) 150 MG TABCR PO ×2 (11:30→16:33)
[2020-10-05] MEDS: hydroCHLOROthiazide 12.5 MG CAPSULE PO (11:30)
--- NOTE | 2020-10-05 11:35 | PC.NURSE ---
Patients medication given late due to patient having emesis from being transported. Patient able to take all medication in applesauce with no issues at this time. Denies any nausea at present. Resting in bed with hob elevated. Call light and belongings provided.
[2020-10-05] MEDS: polyethylene glycoL 3350 17 GM POWD.PACK PO (11:40)
[2020-10-05 12:18] LABS: Glucose Point of Care 176 (65-105)
[2020-10-05 16:30] VITALS: BP 143/66; PULSE 55; RESP 18; TEMP 36.1; O2SAT 93
[2020-10-05 17:02] LABS: Glucose Point of Care 197 (65-105)
[2020-10-05] MEDS: ATORVASTATIN 40 MG TABLET PO (20:54)
[2020-10-05] MEDS: INSULIN GLARGINE (*BKC) 100 UNITS/ML 40 UNITS SUB-Q (20:55)
[2020-10-05 21:11] LABS: Glucose Point of Care 180 (65-105)
[2020-10-06 00:29] VITALS: BP 159/52; PULSE 52; RESP 20; TEMP 36; O2SAT 93
[2020-10-06 05:53] LABS: Hematocrit 43.7 % (35.0-42.0); Hemoglobin 14.2 g/dL (11.7-13.8); Mean Corpuscular HGB Conc 32.5 g/dL (32.0-36.0); Mean Corpuscular Hemoglobin 28.1 pg (27.0-31.0); Mean Corpuscular Volume 86.4 fL (78.0-102.0); Mean Platelet Volume 9.2 fl (9.2-11.8); Platelet Count Result 333 K/mm3 (150-420); Red Blood Count 5.06 M/mm3 (4.20-5.40); Red Cell Distribution Width 13.4 % (11.6-14.4); White Blood Count 7.7 K/mm3 (4.8-10.8)
[2020-10-06 06:09] LABS: Alanine Aminotransferase 28 U/L (14-59); Albumin Level 1.9 g/dL (3.4-5.0); Alkaline Phosphatase 87 U/L (46-116); Anion Gap -1 mmol/L (8-16); Aspartate Amino Transferase 28 U/L (15-37); Bilirubin,Total 0.3 mg/dL (0.00-1.00); Blood Urea Nitrogen 22 mg/dL (7-18); Calcium 8.3 mg/dL (8.5-10.1); Carbon Dioxide 36 mmol/L (21-32); Chloride 100 mmol/L (98-108); Estimated Glomerular Filt Rate 49; Glucose 112 mg/dL (70-99); Osmolality Calculated 284 mOsm/kg (285-295); Sodium 135 mmol/L (136-145)
[2020-10-06 08:00] VITALS: BP 139/88; PULSE 54; RESP 18; TEMP 36.4; O2SAT 94
--- NOTE | 2020-10-06 08:10 | P.PN_ITS ---
Progress Note: A&P Assessment and Plan (1) Altered mental status: Code(s): R41.82 - Altered mental status, unspecified <Janet Hopson EVANGELISTADelmi - Last Filed: 10/06/20 08:32> Status: Acute <Janet Hopson MITCHEL - Last Filed: 10/06/20 08:32> Assessment and Plan: * Improving * possible secondary to UTI vs cva versus hypoalbuminemia * According to patient family member she is baseline * Will continue to monitor * BC no growth <Janet Hopson EVANGELISTADelmi - Last Filed: 10/06/20 08:32> (2) Urinary tract infection: Onset Date: ~09/19/19 <Janet Hopson EVANGELISTADelmi - Last Filed: 10/06/20 08:32> Code(s): N39.0 - Urinary tract infection, site not specified <Janet Hopson MITCHEL - Last Filed: 10/06/20 08:32> Status: Acute <Janet Hopson EVANGELISTADelmi - Last Filed: 10/06/20 08:32> Assessment and Plan: * continue rocephin day 04/27 * Urine positive for WBCs and bacteria * Positive for E. coli sensitive to Rocephin on 09/19/2019 <Janet Hopson MITCHEL - Last Filed: 10/06/20 08:32> (3) Hypertension: Qualifiers: Hypertension type: unspecified Qualified Code(s): I10 - Essential (primary) hypertension <Janet Hopson LACYApril - Last Filed: 10/06/20 08:32> Code(s): I10 - Essential (primary) hypertension <Janet Hopson EVANGELISTADelmi - Last Filed: 10/06/20 08:32> Status: Chronic <Janet Hopson EVANGELISTADelmi - Last Filed: 10/06/20 08:32> Assessment and Plan: * slightly elevated but improved since previous blood pressure reading * Medication was previously adjusted continue amlodipine 10 mg, hydrochlorothiazide 12.5, and lisinopril 40 mg p.o. daily hydralazine as needed with parameters placed, have decreased the metoprolol to 25 mg twice daily due to a heart rate in the lower 50s * Continue vital signs * Adjust medication as needed <MITCHEL Esparza - Last Filed: 10/06/20 08:32> (4) Insulin dependent diabetes mellitus: Code(s): E11.9 - Type 2 diabetes mellitus without complications; Z79.4 - senior living (current) use of insulin <MITCHEL Esparza - Last Filed: 10/06/20 08:32> Status: Chronic <MITCHEL Esparza - Last Filed: 10/06/20 08:32> Assessment and Plan: * bs below 300 * Continue Lantus Humalog 10 units subcu 3 times daily * Continue to monitor blood sugar and adjust medication as needed also continue hypoglycemic protocol <MITCHEL Esparza - Last Filed: 10/06/20 08:32> (5) Depression: Code(s): F32.9 - Major depressive disorder, single episode, unspecified <MITCHEL Esparza - Last Filed: 10/06/20 08:32> Status: Acute <MITCHEL Esparza - Last Filed: 10/06/20 08:32> Assessment and Plan: * continue home medication of fluoxetine and bupropion <MITCHEL Esparza - Last Filed: 10/06/20 08:32> (6) Self-care deficit for feeding, bathing, and toileting: Code(s): Z74.1 - Need for assistance with personal care <MITCHEL Esparza - Last Filed: 10/06/20 08:32> Status: Acute <MITCHEL Esparza - Last Filed: 10/06/20 08:32> Assessment and Plan: * Department of aging has been notified patient will be placed in a [facility]. <MITCHEL Esparza - Last Filed: 10/06/20 08:32> (7) CVA (cerebral vascular accident): Code(s): I63.9 - Cerebral infarction, unspecified <MITCHEL Esparza - Last Filed: 10/06/20 08:32> Status: Acute <LACY Esparza-C - Last Filed: 10/06/20 08:32> Assessment and Plan:
--- NOTE | 2020-10-06 08:10 | WPDPN ---
Progress Note: A&P Assessment and Plan (1) Altered mental status: Code(s): R41.82 - Altered mental status, unspecified <Janet Hopson EVANGELISTADelmi - Last Filed: 10/06/20 08:32> Status: Acute <Janet Hopson EVANGELISTADelmi - Last Filed: 10/06/20 08:32> Assessment and Plan: Improving possible secondary to UTI vs cva versus hypoalbuminemia According to patient family member she is baseline Will continue to monitor BC no growth <Janet RodriguezMITCHEL Corbett - Last Filed: 10/06/20 08:32> (2) Urinary tract infection: Onset Date: ~09/19/19 <Janet RordiguezMITCHEL Corbett - Last Filed: 10/06/20 08:32> Code(s): N39.0 - Urinary tract infection, site not specified <Janet Hopson COOPERATIVE EXTENSION AGENTThongDelmi - Last Filed: 10/06/20 08:32> Status: Acute <Janet Hopson COOPERATIVE EXTENSION AGENTThongDelmi - Last Filed: 10/06/20 08:32> Assessment and Plan: continue rocephin day 88 Urine positive for WBCs and bacteria Positive for E. coli sensitive to Rocephin on 09/19/2019 <Markellaurelia MichaelCelina Hopson COOPERATIVE EXTENSION AGENTThongDelmi - Last Filed: 10/06/20 08:32> (3) Hypertension: Qualifiers: Hypertension type: unspecified Qualified Code(s): I10 - Essential (primary) hypertension <Janet MichaelMITCHEL Corbett - Last Filed: 10/06/20 08:32> Code(s): I10 - Essential (primary) hypertension <Janet RodriguezMITCHEL Corbett - Last Filed: 10/06/20 08:32> Status: Chronic <Jaent HopsonLACYThongDelmi - Last Filed: 10/06/20 08:32> Assessment and Plan: slightly elevated but improved since previous blood pressure reading Medication was previously adjusted continue amlodipine 10 mg, hydrochlorothiazide 12.5, and lisinopril 40 mg p.o. daily hydralazine as needed with parameters placed, have decreased the metoprolol to 25 mg twice daily due to a heart rate in the lower 50s Continue vital signs Adjust medication as needed <MITCHEL Esparza - Last Filed: 10/06/20 08:32> (4) Insulin dependent diabetes mellitus: Code(s): E11.9 - Type 2 diabetes mellitus without complications; Z79.4 - exterminator helper (current) use of insulin <MITCHEL Esparza - Last Filed: 10/06/20 08:32> Status: Chronic <MITCHEL Esparza - Last Filed: 10/06/20 08:32> Assessment and Plan: bs below 300 Continue Lantus Humalog 10 units subcu 3 times daily Continue to monitor blood sugar and adjust medication as needed also continue hypoglycemic protocol <MITCHEL Esparza - Last Filed: 10/06/20 08:32> (5) Depression: Code(s): F32.9 - Major depressive disorder, single episode, unspecified <MITCHEL Esparza - Last Filed: 10/06/20 08:32> Status: Acute <MITCHEL Esparza - Last Filed: 10/06/20 08:32> Assessment and Plan: continue home medication of fluoxetine and bupropion <MITCHEL Esparza - Last Filed: 10/06/20 08:32> (6) Self-care deficit for feeding, bathing, and toileting: Code(s): Z74.1 - Need for assistance with personal care <MITCHEL Esparza - Last Filed: 10/06/20 08:32> Status: Acute <MITCHEL Esparza - Last Filed: 10/06/20 08:32> Assessment and Plan: Department of aging has been notified patient will be placed in a correction. <MITCHEL Esparza - Last Filed: 10/06/20 08:32> (7) CVA (cerebral vascular accident): Code(s): I63.9 - Cerebral infarction, unspecified <MITCHEL Esparza - Last Filed: 10/06/20 08:32> Status: Acute <MITCHEL Esparza - Last Filed: 10/06/20 08:32> Assessment and Plan: CT indicates Age-indeterminate infarct in cerebellum on the right. Mini-Mental exam 08/19 severe cognitive impairment Continue physical therapy/Occupational Therapy MRI does not indicate any new CVA <MITCHEL Esparza - Last Filed: 10/06/20 08:32> (8) Hypoalbuminemia: Code(s): E88.09 - Other disorders of laura
[2020-10-06 08:57] LABS: BNP 67.3 pg/mL (0-100)
[2020-10-06 09:00] VITALS: PULSE 52
[2020-10-06] MEDS: FLUoxetine HCL 10 MG CAPSULE 20 MG PO ×2 (09:16→16:38)
[2020-10-06] MEDS: lisinopriL 20 MG TABLET 40 MG PO (09:17)
[2020-10-06] MEDS: amLODIPine BESYLATE 5 MG TABLET 10 MG PO (09:17)
[2020-10-06] MEDS: hydroCHLOROthiazide 12.5 MG CAPSULE PO (09:17)
[2020-10-06] MEDS: CLOPIDOGREL BISULFATE 75 MG TABLET PO (09:20)
[2020-10-06] MEDS: ASPIRIN 325 MG ENTERIC TABLET PO (09:21)
[2020-10-06] MEDS: ENOXAPARIN 40 MG/0.4 ML SYRINGE SUB-Q (09:21)
[2020-10-06] MEDS: buPROPion HCL XL (24 HR) 150 MG TABCR PO ×2 (09:23→16:38)
[2020-10-06 09:30] VITALS: PULSE 54
[2020-10-06 09:38] LABS: Erythrocyte Sedimentation Rate 35 mm/hr (0-20)
[2020-10-06 09:55] LABS: Glucose Point of Care 125 (65-105)
[2020-10-06 11:10] LABS: Glucose Point of Care 276 (65-105)
[2020-10-06] MEDS: ALBUMIN HUMAN 25% 25 GM/100 ML 100 ML IVPB ×3 (11:45→23:36)
[2020-10-06 16:00] VITALS: BP 146/55; PULSE 62; RESP 20; TEMP 37.4; O2SAT 95
[2020-10-06 16:51] LABS: Glucose Point of Care 185 (65-105)
[2020-10-06] MEDS: ATORVASTATIN 40 MG TABLET PO (21:07)
[2020-10-06] MEDS: INSULIN GLARGINE (*BKC) 100 UNITS/ML 40 UNITS SUB-Q (21:07)
[2020-10-06 21:08] VITALS: PULSE 70
[2020-10-06] MEDS: METOPROLOL TARTRATE TAB 25 MG, METOPROLOL TARTRATE TAB 12.5 MG 37.5 MG PO (21:08)
[2020-10-06 21:20] LABS: Glucose Point of Care 212 (65-105)
[2020-10-07] VITALS: BP 169/55; PULSE 60; RESP 18; TEMP 36; O2SAT 93
--- NOTE | 2020-10-07 02:41 | PC.NURSE ---
pt sleeping, no evidence of distress noted, belongings and call light within reach
[2020-10-07] MEDS: ALBUMIN HUMAN 25% 25 GM/100 ML 100 ML IVPB (05:36)
[2020-10-07 05:48] LABS: Hemoglobin 13.5 g/dL (11.7-13.8); Mean Corpuscular HGB Conc 32.1 g/dL (32.0-36.0); Mean Corpuscular Hemoglobin 27.8 pg (27.0-31.0); Mean Corpuscular Volume 86.6 fL (78.0-102.0); Mean Platelet Volume 9.1 fl (9.2-11.8); Platelet Count Result 342 K/mm3 (150-420); Red Blood Count 4.85 M/mm3 (4.20-5.40); Red Cell Distribution Width 13.4 % (11.6-14.4)
[2020-10-07 06:15] LABS: Alanine Aminotransferase 29 U/L (14-59); Alkaline Phosphatase 78 U/L (46-116); Anion Gap -1 mmol/L (8-16); Aspartate Amino Transferase 22 U/L (15-37); Bilirubin,Total 0.4 mg/dL (0.00-1.00); Blood Urea Nitrogen 19 mg/dL (7-18); Calcium 8.9 mg/dL (8.5-10.1); Carbon Dioxide 37 mmol/L (21-32); Chloride 100 mmol/L (98-108); Estimated Glomerular Filt Rate 49; Glucose 141 mg/dL (70-99); Osmolality Calculated 286 mOsm/kg (285-295); Potassium 4.1 mmol/L (3.5-5.1); Sodium 136 mmol/L (136-145); Total Protein 6.7 g/dL (6.4-8.2)
[2020-10-07 07:42] VITALS: BP 128/62; PULSE 58; RESP 18; TEMP 36.2; O2SAT 93
[2020-10-07] MEDS: ENOXAPARIN 40 MG/0.4 ML SYRINGE SUB-Q (08:44)
[2020-10-07] MEDS: polyethylene glycoL 3350 17 GM POWD.PACK PO (08:45)
[2020-10-07] MEDS: ASPIRIN 325 MG ENTERIC TABLET PO (08:47)
[2020-10-07] MEDS: lisinopriL 20 MG TABLET 40 MG PO (08:47)
[2020-10-07] MEDS: amLODIPine BESYLATE 5 MG TABLET 10 MG PO (08:47)
[2020-10-07 08:48] VITALS: PULSE 58
[2020-10-07] MEDS: METOPROLOL TARTRATE TAB 25 MG, METOPROLOL TARTRATE TAB 12.5 MG 37.5 MG PO (08:48)
[2020-10-07] MEDS: FLUoxetine HCL 10 MG CAPSULE 20 MG PO ×2 (08:48→17:02)
[2020-10-07] MEDS: CLOPIDOGREL BISULFATE 75 MG TABLET PO (08:48)
[2020-10-07] MEDS: hydroCHLOROthiazide 12.5 MG CAPSULE PO (08:51)
[2020-10-07 08:54] VITALS: PULSE 58
[2020-10-07] MEDS: buPROPion HCL XL (24 HR) 150 MG TABCR PO ×2 (08:54→17:02)
[2020-10-07] MEDS: METOPROLOL TARTRATE 25 MG TABLET (08:54)
[2020-10-07 11:32] LABS: Glucose Point of Care 205 (65-105)
--- NOTE | 2020-10-07 13:11 | P.PN_ITS ---
Progress Note: A&P Assessment and Plan (1) Altered mental status: Code(s): R41.82 - Altered mental status, unspecified Status: Acute Assessment and Plan: * Unchanged * possible secondary to UTI vs cva versus hypoalbuminemia * According to patient family member she is baseline * Will continue to monitor * BC no growth (2) Urinary tract infection: Onset Date: ~09/19/19 Code(s): N39.0 - Urinary tract infection, site not specified Status: Acute Assessment and Plan: * rocephin completed * Urine positive for WBCs and bacteria * Positive for E. coli sensitive to Rocephin on 09/19/2019 (3) Hypertension: Qualifiers: Hypertension type: unspecified Qualified Code(s): I10 - Essential (primary) hypertension Code(s): I10 - Essential (primary) hypertension Status: Chronic Assessment and Plan: * Improved * Medication was previously adjusted continue amlodipine 10 mg, hydrochlorothiazide 12.5, and lisinopril 40 mg p.o. daily hydralazine as needed with parameters placed, have decreased the metoprolol to 25 mg twice daily due to a heart rate in the lower 50s * Continue vital signs * Adjust medication as needed (4) Insulin dependent diabetes mellitus: Code(s): E11.9 - Type 2 diabetes mellitus without complications; Z79.4 - correction (current) use of insulin Status: Chronic Assessment and Plan: * bs below 300 * Continue Lantus Humalog 10 units subcu 3 times daily * Continue to monitor blood sugar and adjust medication as needed also continue hypoglycemic protocol (5) Depression: Code(s): F32.9 - Major depressive disorder, single episode, unspecified Status: Acute Assessment and Plan: * continue home medication of fluoxetine and bupropion (6) Self-care deficit for feeding, bathing, and toileting: Code(s): Z74.1 - Need for assistance with personal care Status: Acute Assessment and Plan: * Department of aging has been notified [facility] will be placed in a [facility]. (7) CVA (cerebral vascular accident): Code(s): I63.9 - Cerebral infarction, unspecified Status: Acute Assessment and Plan: * CT indicates Age-indeterminate infarct in cerebellum on the right. * Mini-Mental exam 08/19 severe cognitive impairment * Continue physical therapy/Occupational Therapy * MRI does not indicate any new CVA (8) Hypoalbuminemia: Code(s): E88.09 - Other disorders of plasma-protein metabolism, not elsewhere classified Status: Acute Assessment and Plan: * Possibly secondary to malnutrition * Patient receiving supplementary nutrition encouraged to drink * Anion gap -1 * Albumin1.8>1.9>3.0 * Will infuse albumin for 1 day * Blood sugar 180 Review of Systems Review of Systems: All systems reviewed & are unremarkable except as noted in HPI and below (10 point system review) Exam Narrative: Exam Narrative: GENERAL: This is a well-nourished, well-developed patient, in no apparent distress with confusion HEAD: normocephalic, atraumatic. EYES: PERRL. Sclera clear/white. Vision is grossly intact. EARS: External ears normal, auditory canals clear and without drainage, TMs normal without perforation. Hearing grossly intact. NOSE: External nose normal with no obvious nasal discharge, nares without redness, no rhinorrhea. THROAT: Mucous membranes moist, posterior pharynx clear. NECK: Neck supple, non-tender without lymphadenopathy, masses or thyromegaly. CARDIOVASCULAR: Regular rate and
--- NOTE | 2020-10-07 13:11 | WPDPN ---
Progress Note: A&P Assessment and Plan (1) Altered mental status: Code(s): R41.82 - Altered mental status, unspecified Status: Acute Assessment and Plan: Unchanged possible secondary to UTI vs cva versus hypoalbuminemia According to patient family member she is baseline Will continue to monitor BC no growth (2) Urinary tract infection: Onset Date: ~09/19/19 Code(s): N39.0 - Urinary tract infection, site not specified Status: Acute Assessment and Plan: rocephin completed Urine positive for WBCs and bacteria Positive for E. coli sensitive to Rocephin on 09/19/2019 (3) Hypertension: Qualifiers: Hypertension type: unspecified Qualified Code(s): I10 - Essential (primary) hypertension Code(s): I10 - Essential (primary) hypertension Status: Chronic Assessment and Plan: Improved Medication was previously adjusted continue amlodipine 10 mg, hydrochlorothiazide 12.5, and lisinopril 40 mg p.o. daily hydralazine as needed with parameters placed, have decreased the metoprolol to 25 mg twice daily due to a heart rate in the lower 50s Continue vital signs Adjust medication as needed (4) Insulin dependent diabetes mellitus: Code(s): E11.9 - Type 2 diabetes mellitus without complications; Z79.4 - ocean transportation 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 of insulin Status: Chronic Assessment and Plan: bs below 300 Continue Lantus Humalog 10 units subcu 3 times daily Continue to monitor blood sugar and adjust medication as needed also continue hypoglycemic protocol (5) Depression: Code(s): F32.9 - Major depressive disorder, single episode, unspecified Status: Acute Assessment and Plan: continue home medication of fluoxetine and bupropion (6) Self-care deficit for feeding, bathing, and toileting: Code(s): Z74.1 - Need for assistance with personal care Status: Acute Assessment and Plan: Department of aging has been notified patient will be placed in a correction. (7) CVA (cerebral vascular accident): Code(s): I63.9 - Cerebral infarction, unspecified Status: Acute Assessment and Plan: CT indicates Age-indeterminate infarct in cerebellum on the right. Mini-Mental exam 08/19 severe cognitive impairment Continue physical therapy/Occupational Therapy MRI does not indicate any new CVA (8) Hypoalbuminemia: Code(s): E88.09 - Other disorders of plasma-protein metabolism, not elsewhere classified Status: Acute Assessment and Plan: Possibly secondary to malnutrition Patient receiving supplementary nutrition encouraged to drink Anion gap -1 Albumin1.8>1.9>3.0 Will infuse albumin for 1 day Blood sugar 180 Review of Systems Review of Systems: All systems reviewed & are unremarkable except as noted in HPI and below (10 point system review) Exam Narrative: Exam Narrative: GENERAL: This is a well-nourished, well-developed patient, in no apparent distress with confusion HEAD: normocephalic, atraumatic. EYES: PERRL. Sclera clear/white. Vision is grossly intact. EARS: External ears normal, auditory canals clear and without drainage, TMs normal without perforation. Hearing grossly intact. NOSE: External nose normal with no obvious nasal discharge, nares without redness, no rhinorrhea. THROAT: Mucous membranes moist, posterior pharynx clear. NECK: Neck supple, non-tender without lymphadenopathy, masses or thyromegaly. CARDIOVASCULAR: Regular rate and rhythm without murmurs, gallops, or rubs. RESPIRATORY: Clear to auscultation. Breath sounds equal bilaterally. No wheezes, rales, or rhonchi. GASTROINTESTINAL: Abdomen soft, non-tender, nondistended. Bowel sounds are active. No hepato-splenomegaly, or palpable masses. No guarding. SKIN: Multiple lower extremity skin tears NEURO: awake, alert, and oriented to person, place and time. There were no obvious focal neurologic abnormalities. Steady
[2020-10-07 16:00] VITALS: BP 146/65; PULSE 59; RESP 18; TEMP 36.3; O2SAT 98
[2020-10-07 17:01] LABS: Glucose Point of Care 215 (65-105)
[2020-10-07 21:17] VITALS: PULSE 84
[2020-10-07] MEDS: ATORVASTATIN 40 MG TABLET PO (21:17)
[2020-10-07] MEDS: METOPROLOL TARTRATE 25 MG TABLET 37.5 MG PO (21:17)
[2020-10-07] MEDS: INSULIN GLARGINE (*BKC) 100 UNITS/ML 40 UNITS SUB-Q (21:18)
[2020-10-07 21:46] LABS: Glucose Point of Care 160 (65-105)
[2020-10-08] VITALS: BP 170/66; PULSE 60; RESP 20; TEMP 36.8; O2SAT 94
--- NOTE | 2020-10-08 03:00 | PC.NURSE ---
Pt. resting, no distress noted, Pt. turned and repositioned c minimal help by pt. Pt. will try to follow commands but is only alert x1. Call [facility] in reach.
[2020-10-08 08:00] VITALS: BP 118/56; PULSE 60; RESP 18; TEMP 36.2; O2SAT 96
[2020-10-08 08:47] LABS: Glucose Point of Care 178 (65-105)
[2020-10-08 09:17] VITALS: BMI 49.5
[2020-10-08] MEDS: ENOXAPARIN 40 MG/0.4 ML SYRINGE SUB-Q (09:38)
[2020-10-08 09:39] VITALS: PULSE 60
[2020-10-08] MEDS: polyethylene glycoL 3350 17 GM POWD.PACK PO (09:39)
[2020-10-08] MEDS: METOPROLOL TARTRATE 25 MG TABLET 37.5 MG PO ×2 (09:39→22:36)
[2020-10-08] MEDS: CLOPIDOGREL BISULFATE 75 MG TABLET PO (09:39)
[2020-10-08] MEDS: ASPIRIN 325 MG ENTERIC TABLET PO (09:40)
[2020-10-08] MEDS: amLODIPine BESYLATE 5 MG TABLET 10 MG PO (09:41)
[2020-10-08] MEDS: FLUoxetine HCL 10 MG CAPSULE 20 MG PO ×2 (09:43→16:41)
[2020-10-08] MEDS: lisinopriL 20 MG TABLET 40 MG PO (09:43)
[2020-10-08] MEDS: buPROPion HCL XL (24 HR) 150 MG TABCR PO ×2 (09:43→16:40)
[2020-10-08] MEDS: hydroCHLOROthiazide 12.5 MG CAPSULE PO (09:43)
[2020-10-08] MEDS: ONDANSETRON INJ 4 MG/2 ML VIAL IV PUSH ×2 (09:43→20:54)
[2020-10-08 10:31] LABS: SARS-CoV-2 Ag Negative (Negative)
--- NOTE | 2020-10-08 10:57 | PC.NURSE ---
Patient up to chair with flavia lift
[2020-10-08 11:35] LABS: Glucose Point of Care 254 (65-105)
--- NOTE | 2020-10-08 14:45 | PM.IMPN ---
Progress Note: A&P Assessment and Plan (1) Altered mental status: Code(s): R41.82 - Altered mental status, unspecified Status: Acute Assessment and Plan: 10/08/2020 slight improvement since I 1st saw this patient over week ago, according to patient's family patient is at her baseline mentally but not physically, patient will require a hospital bed at home for adjustments from sitting to lying with a soft mattress to prevent decubitus ulcers pressure sores, and she will require a 4 year lift as it took for nursing staff members with a Penny to move patient from bed to chair, and patient will also require a wheelchair since she is unable to independently ambulate from bed to bedside commode, nursing staff used a stand assist prior to the Penny and that device would not work given the patient's inability to ambulate and her weakness (2) Urinary tract infection: Onset Date: ~09/19/19 Code(s): N39.0 - Urinary tract infection, site not specified Status: Acute Assessment and Plan: 10/08/2020 Rocephin completed, WBCs 8, Positive for E. coli sensitive to Rocephin on 09/19/2019 (3) Hypertension: Qualifiers: Hypertension type: unspecified Qualified Code(s): I10 - Essential (primary) hypertension Code(s): I10 - Essential (primary) hypertension Status: Chronic Assessment and Plan: 10/08/2020 continue amlodipine 10 mg, hydrochlorothiazide 12.5, and lisinopril 40 mg p.o. daily hydralazine as needed with parameters placed, have decreased the metoprolol to 25 mg twice daily due to a heart rate in the lower 50s, Continue vital signs, Adjust medication as needed (4) Insulin dependent diabetes mellitus: Code(s): E11.9 - Type 2 diabetes mellitus without complications; Z79.4 - intermediate (current) use of insulin Status: Chronic Assessment and Plan: 10/08/2020 Continue Lantus Humalog 10 units SQ 3 times daily, Continue to monitor blood sugar and adjust medication as needed also continue hypoglycemic protocol (5) Depression: Code(s): F32.9 - Major depressive disorder, single episode, unspecified Status: Acute Assessment and Plan: continue home medication of fluoxetine and bupropion (6) Self-care deficit for feeding, bathing, and toileting: Code(s): Z74.1 - Need for assistance with personal care Status: Acute Assessment and Plan: 10/08/2020 patient's family wants patient to go home, as noted above patient will need a hospital bed for positioning and a soft mattress to prevent pressure ulcers, she will also need a Penny lift as she is bed-bound and when attempted to stand with a stand assist device patient was unable to do so, so she will need a Penny lift for transfers, patient will also need a wheelchair as she is unable to independently ambulate at all and will need some weight to move around. (7) CVA (cerebral vascular accident): Code(s): I63.9 - Cerebral infarction, unspecified Status: Acute Assessment and Plan: CT indicates Age-indeterminate infarct in cerebellum on the right. Mini-Mental exam 08/19 severe cognitive impairment Continue physical therapy/Occupational Therapy MRI does not indicate any new CVA (8) Hypoalbuminemia: Code(s): E88.09 - Other disorders of plasma-protein metabolism, not elsewhere classified Status: Acute Assessment and Plan: Possibly secondary to malnutrition Patient receiving supplementary nutrition encouraged to drink Albumin1.8>1.9>3.0 Subjective Date/time seen: 10/08/20 14:45 Patient is alert and oriented to self she does recall that her son and his girlfriend came in last night to talk with her. Nursing staff indicates it took 4 nurses to transfer patient to chair from the bed using a Penny lift. Nursing staff informed me that they tried a standing lift assist in prior days and that did not work for this patient at all. Patient is basically bedbound and wo
[2020-10-08 16:00] VITALS: BP 131/73; PULSE 62; RESP 18; TEMP 36.9; O2SAT 93
[2020-10-08 16:33] LABS: Glucose Point of Care 241 (65-105)
[2020-10-08] MEDS: INSULIN GLARGINE (*BKC) 100 UNITS/ML 40 UNITS SUB-Q (22:36)
[2020-10-08 22:37] LABS: Glucose Point of Care 211 (65-105)
[2020-10-08] MEDS: ATORVASTATIN 40 MG TABLET PO (22:37)
[2020-10-09] VITALS: BP 130/78; PULSE 54; RESP 16; TEMP 36.1; O2SAT 91
[2020-10-09 06:53] LABS: Hematocrit 42.1 % (35.0-42.0); Hemoglobin 13.3 g/dL (11.7-13.8); Mean Corpuscular HGB Conc 31.6 g/dL (32.0-36.0); Mean Corpuscular Hemoglobin 27.5 pg (27.0-31.0); Platelet Count Result 347 K/mm3 (150-420); Red Blood Count 4.84 M/mm3 (4.20-5.40); Red Cell Distribution Width 13.4 % (11.6-14.4); White Blood Count 8.4 K/mm3 (4.8-10.8)
[2020-10-09 07:02] LABS: Anion Gap 3 mmol/L (8-16); Blood Urea Nitrogen 29 mg/dL (7-18); Calcium 9.1 mg/dL (8.5-10.1); Carbon Dioxide 36 mmol/L (21-32); Chloride 99 mmol/L (98-108); Estimated CRCL calculation 55 ml/min; Estimated Glomerular Filt Rate 44; Glucose 167 mg/dL (70-99); Magnesium 1.6 mg/dL (1.8-2.4); Osmolality Calculated 295 mOsm/kg (285-295); Potassium 4.4 mmol/L (3.5-5.1); Sodium 138 mmol/L (136-145)
[2020-10-09 08:00] VITALS: BP 145/85; PULSE 56; RESP 18; TEMP 36.4; O2SAT 94
[2020-10-09] MEDS: MAGNESIUM SULF 4 GM/WATER100ML 4 GM/100 ML BAG IVPB (08:59)
[2020-10-09 09:01] VITALS: PULSE 86
[2020-10-09] MEDS: METOPROLOL TARTRATE 25 MG TABLET 37.5 MG PO (09:01)
[2020-10-09] MEDS: hydroCHLOROthiazide 12.5 MG CAPSULE PO (09:01)
[2020-10-09] MEDS: ENOXAPARIN 40 MG/0.4 ML SYRINGE SUB-Q (09:01)
[2020-10-09] MEDS: FLUoxetine HCL 10 MG CAPSULE 20 MG PO ×2 (09:02→16:55)
[2020-10-09] MEDS: lisinopriL 20 MG TABLET 40 MG PO (09:02)
[2020-10-09] MEDS: amLODIPine BESYLATE 5 MG TABLET 10 MG PO (09:02)
[2020-10-09] MEDS: ASPIRIN 325 MG ENTERIC TABLET PO (09:02)
[2020-10-09] MEDS: CLOPIDOGREL BISULFATE 75 MG TABLET PO (09:02)
[2020-10-09] MEDS: buPROPion HCL XL (24 HR) 150 MG TABCR PO ×2 (09:03→16:55)
[2020-10-09 11:49] LABS: Glucose Point of Care 214 (65-105)
--- NOTE | 2020-10-09 14:27 | PM.DS ---
DS: Admitting Diagnosis Admitting Diagnosis Admitting Diagnosis: Altered mental status and urinary tract infection <Aaron Saavedra MONIE BarrosoC - Last Filed: 10/09/20 14:46> DS: Discharge Diagnosis Discharge Diagnosis (1) Altered mental status: Code(s): R41.82 - Altered mental status, unspecified <Aaron Saavedra MONIE BarrosoC - Last Filed: 10/09/20 14:46> Status: Acute <Aaron Saavedra ESTRELLITA Barroso - Last Filed: 10/09/20 14:46> Assessment and Plan: 10/08/2020 slight improvement since I 1st saw this patient over week ago, according to patient's family patient is at her baseline mentally but not physically, patient will require a hospital bed at home for adjustments from sitting to lying with a soft mattress to prevent decubitus ulcers pressure sores, and she will require a 4 year lift as it took for nursing staff members with a Penny to move patient from bed to chair, and patient will also require a wheelchair since she is unable to independently ambulate from bed to bedside commode, nursing staff used a stand assist prior to the Penny and that device would not work given the patient's inability to ambulate and her weakness 10/09/2020 patient will be discharged to home per family request rather than to a residential, medical bed with special mattress, wheelchair, and a hoarder lift have been ordered for deliver at the patient's house, multiple home health has refused however family says they will take care of her <Aaron DominguezESTRELLITA Begum - Last Filed: 10/09/20 14:46> (2) Urinary tract infection: Onset Date: ~09/19/19 <Aaron AngelicaESTRELLITA Begum - Last Filed: 10/09/20 14:46> Code(s): N39.0 - Urinary tract infection, site not specified <Aaron DominguezESTRELLITA Begum - Last Filed: 10/09/20 14:46> Status: Acute <Aaron DominguezESTRELLITA Begum - Last Filed: 10/09/20 14:46> Assessment and Plan: 10/08/2020 Rocephin completed, WBCs 8, Positive for E. coli sensitive to Rocephin on 09/19/2019 10/09/2020 no need to send home on antibiotics at this time patient will need follow-up with primary care provider <ESTRELLITA To - Last Filed: 10/09/20 14:46> (3) Hypertension: Qualifiers: Hypertension type: unspecified Qualified Code(s): I10 - Essential (primary) hypertension <ESTRELLITA To - Last Filed: 10/09/20 14:46> Code(s): I10 - Essential (primary) hypertension <ESTRELLITA To - Last Filed: 10/09/20 14:46> Status: Chronic <ESTRELLITA To - Last Filed: 10/09/20 14:46> Assessment and Plan: 10/08/2020 continue amlodipine 10 mg, hydrochlorothiazide 12.5, and lisinopril 40 mg p.o. daily hydralazine as needed with parameters placed, have decreased the metoprolol to 25 mg twice daily due to a heart rate in the lower 50s, Continue vital signs, Adjust medication as needed 10/09/2020 continue medications with any changes during hospitalization, script will be sent to patient's pharmacy <ESTRELLITA To - Last Filed: 10/09/20 14:46> (4) Insulin dependent diabetes mellitus: Code(s): E11.9 - Type 2 diabetes mellitus without complications; Z79.4 - prison (current) use of insulin <ESTRELLITA To - Last Filed: 10/09/20 14:46> Status: Chronic <ESTRELLITA To - Last Filed: 10/09/20 14:46> Assessment and Plan: 10/08/2020 Continue Lantus Humalog 10 units SQ 3 times daily, Continue to monitor blood sugar and adjust medication as needed also continue hypoglycemic protocol 10/09/2020 continue home medication regimen <ESTRELLITA To - Last Filed: 10/09/20 14:46> (5) Depression: Code(s): F32.9 - Major depressive disorder, single episode, unspecified <ESTRELLITA To - Last Filed: 10/09/20 14:46> Status: Acute <Aaron Barroso APN-C - Last Filed: 10/09/20 14:46> Assessment and Plan: continue home medication of fluoxetine and bup
[2020-10-09 15:37] VITALS: BP 146/56; PULSE 64; RESP 18; TEMP 37.1; O2SAT 93
[2020-10-09 17:02] LABS: Glucose Point of Care 242 (65-105)
--- NOTE | 2020-10-14 11:26 | PC.NURSE ---
Unable to contact for discharge call back.
== END 2020-10-09 17:50 | disposition home or self-care (01) | DRG 690 ==
LOC: CHSED 15:41 → CHS2ND 17:50
PROVIDERS: Emergency Medicine; Nurse Practitioner; Nurse Practitioner Family; Admitting Provider Emergency Medicine; Emergency Provider Emergency Medicine; Visit Provider Emergency Medicine
DX: N39.0 Urinary tract infection, site not specified (principal); I10 Essential (primary) hypertension; E11.9 Type 2 diabetes mellitus without complications; E66.09 Other obesity due to excess calories; E88.09 Other disorders of plasma-protein metabolism, not elsewhere classified; R41.82 Altered mental status, unspecified; F32.9 Major depressive disorder, single episode, unspecified; Z20.822 Contact with and (suspected) exposure to COVID-19; Z74.1 Need for assistance with personal care; Z86.73 Personal history of transient ischemic attack (TIA), and cerebral infarction without residual deficits; Z87.891 Personal history of nicotine dependence
CPT/HCPCS: 36415; 70450; 70551; 71045; 80048; 80053; 81001; 83605; 83735; 83880; 84484; 85025; 85027; 85610; 85652; 85730; 87040; 87426; 96361; 96365; 96366; 96367; 96372; 96375; 96376; 97162; 97165; 99285; A9270; C9803; G0378; J0696; J1650; J1815; J2060; J2405; J2543; J3475; J7030; P9047